=== PATIENT | male | born 1955 | race Caucasian/White ===

== ENCOUNTER 2017-03-05 11:50 | Inpatient (IN) | payer BC ==
[2017-03-05] MEDS ORDERED: Sodium Chloride 0.9% 2.5 ML Syringe FLUSH PRN (11:53)
[2017-03-05] MEDS ORDERED: Sodium Chloride 0.9% 10 ML Syringe FLUSH PRN (11:53)
--- NOTE | 2017-03-05 12:05 | EDM.PDOC ---
ED HPI GENERAL MEDICAL PROBLEM - General Chief Complaint: General Stated Complaint: OXYGEN LEVEL LOW Time Seen by Provider: 03/05/17 11:52 Source of Information: Reports: Family History Limitations: Reports: No Limitations - History of Present Illness INITIAL COMMENTS - FREE TEXT/NARRATIVE: History of present illness: []She has a history of liver cancer and was treated in [place] on January 29 with chemotherapy embolization and while in the hospital received IV Dilaudid which caused respiratory depression. He was discharged on January 31 and had increased amount of confusion and hypoxia suspected from encephalopathy and Dilaudid. She was started on lactulose and was discharged home. She does have a history of COPD and is supposed to be on oxygen that was prescribed prior to discharge from [place], however he did not receive this. He was seen in clinic today by Dr. Echevarria to transfer him to the ED due to increased confusion and ascites. He's requesting patient be admitted receive paracentesis and worked up for worsening hepatic encephalitis. Patient had some nausea last night but has not had any vomiting or diarrhea. He has eaten a small amount since he came home. On arrival here his O2 sat was in the 70s. Review of systems: As per history of present illness and below otherwise all systems reviewed and negative. Past medical history: As per history of present illness and as reviewed below otherwise noncontributory. Surgical history: As per history of present illness and as reviewed below otherwise noncontributory. Social history: No reported history of drug or alcohol abuse. Family history: As per history of present illness and as reviewed below otherwise noncontributory. Physical exam: General: Well developed, well nourished in NAD, pale HEENT: Atraumatic, normocephalic, pupils reactive, negative for conjunctival pallor or scleral icterus, mucous membranes moist, throat clear, neck supple, nontender, trachea midline. Lungs: Bilateral rhonchi equal bilaterally, no respiratory distress or accessory muscle use, chest nontender. Heart: S1S2, regular, negative for clicks, rubs, or JVD. Abdomen: Soft, mildly, nontender. No rebound or guarding . Negative for costovertebral tenderness. Pelvis: Stable nontender. Genitourinary: Deferred. Rectal: Deferred. Extremities: Atraumatic, negative for cords or calf pain. Neurovascular unremarkable. Neuro: Awake, alert, oriented. Cranial nerves II through XII unremarkable. Cerebellum unremarkable. Motor and sensory unremarkable throughout. Exam nonfocal. Diagnostics: []Labs ordered showing anemia and thrombocytopenia and a predominance of neutrophils however a normal white count Chest x-ray shows no acute changes chronic interstitial lung disease similar on previous x-ray Therapeutics: []Patient was placed on oxygen and given a DuoNeb while in the ED Impression: [], Hypoxia, Liver cancer, thrombocytopenia, ascites Plan: []Admit for O2 and further treatment and workup Definitive disposition and diagnosis as appropriate pending reevaluation and review of above. abdomen Pain Score (Numeric/FACES): 5 - Related Data Allergies Allergy/AdvReac Type Severity Reaction Status Date / Time No Known Allergies Allergy Verified 03/05/17 12:13 Home Meds: Home Meds Aspirin 81 mg PO DAILY 06/21/15 [History] Spironolactone 100 mg PO DAILY 06/21/15 [History] Acetaminophen/Diphenhydramine [Acetaminophen-Diphenhyd 500-25] 1 each PO BEDTIME PRN 03/05/17 [History] Acetaminophen/HYDROcodone [Cornell 325-5 MG] 2 tab PO Q6H PRN 03/05/17 [History] Albuterol Sulfate [Proair Hfa] 1 puff IH Q6H PRN 03/05/17 [History] Albuterol/Ipratropium [DuoNeb 3.0-0.5 MG/3 ML] 3 ml NEB Q6HRRT 03/05/17 [History ] FLUoxetine HCl [Fluoxetine HCl] 40 mg PO DAILY 03/05/17 [History] Ondansetron [Zofran ODT] 4 mg PO Q8H PRN 03/05/17 [History] Past Medical History HEENT History: Reports: Impaired Vision Cardiovascular History: Reports: Hypertension Respiratory History: Reports: SOB Gastrointestinal History: Reports: Jaundice Neurological History: Reports: CVA Endocrine/Metabolic History: Reports: Diabetes, Type II Hematologic History: Reports: Blood Transfusion(s) Oncologic (Cancer) History: Reports: Liver - Infectious Disease History Infectious Disease History: Reports: Hepatitis C - Past Surgical History GI Surgical History: Reports: Appendectomy, Other (See Below) Social & Family History - Family History Family Medical History: Noncontributory HEENT: Reports: Impaired Vision Cardiac: Reports: Hypertension Respiratory: Reports: Other (See Below) Other Respiratory Family Hisory: lung CA OBGYN: Reports: Oncologic: Reports: Lung - Tobacco Use Smoking Status *Q: Former Smoker Years of Tobacco use: 40 Packs/Tins Daily: 0.5 Second Hand Smoke Exposure: Yes - Caffeine Use Caffeine Use: Reports: Coffee - Alcohol Use Days Per Week of Alcohol Use: 0 Number of Drinks Per Day: 1 Total Drinks Per Week: 0 - Recreational Drug Use Recreational Drug Use: No Drug Use in Last 12 Months: No ED ROS GENERAL - Review of Systems Review Of Systems: See Below (See history of present illness) ED EXAM, GENERAL - Physical Exam Exam: See Below (See history of present illness see history of present illness) Course - Vital Signs Last Recorded V/S: Last Vital Signs Temp 37.1 C 03/05/17 12:16 Pulse 93 03/05/17 12:50 Resp 16 03/05/17 12:50 BP 156/78 H 03/05/17 12:50 Pulse Ox 91 L 03/05/17 13:06 - Orders/Labs/Meds Orders: Active Orders 24 hr Category Date Time Status Patient Status [ADT] Routine ADT 03/05/17 14:13 Active Antiembolic Devices [RC] PER UNIT ROUTINE Care 03/05/17 14:18 Active Blood Glucose Check, Bedside [RC] TIDMEALS Care 03/05/17 14:13 Active EKG Documentation Completion [RC] STAT Care 03/05/17 13:07 Active Height and Weight [RC] DAILY Care 03/05/17 14:13 Active Intake and Output [RC] QSHIFT Care 03/05/17 14:15 Active Notify Provider Vital Signs [RC] ASDIRECTED Care 03/05/17 14:15 Active Oxygen Therapy [RC] PRN Care 03/05/17 14:13 Active Pulse Oximetry [RC] PRN Care 03/05/17 14:15 Active RT Aerosol Therapy [RC] ASDIRECTED Care 03/05/17 13:06 Active RT Aerosol Therapy [RC] ASDIRECTED Care 03/05/17 14:18 Active Up With Assistance [RC] ASDIRECTED Care 03/05/17 14:13 Active VTE/DVT Education [RC] PER UNIT ROUTINE Care 03/05/17 14:13 Active Vital Signs [RC] Q4H Care 03/05/17 14:13 Active PT Evaluation and Treatment [CONS] Routine Cons 03/05/17 14:13 Active [place] Diet [DIET] Diet 03/05/17 Breakfast Active Fluid Restriction [DIET] Diet 03/05/17 Dinner Active Echo Comp wo Cont [US] Stat Exams 03/05/17 14:13 Ordered CBC WITH AUTO DIFF [HEME] AM Lab 03/06/17 05:11 Ordered CBC WITH AUTO DIFF [HEME] AM Lab 03/07/17 05:11 Ordered CBC WITH AUTO DIFF [HEME] AM Lab 03/08/17 05:11 Ordered CBC WITH AUTO DIFF [HEME] AM Lab 03/09/17 05:11 Ordered COMPREHENSIVE METABOLIC PN,CMP [CHEM] AM Lab 03/06/17 05:11 Ordered COMPREHENSIVE METABOLIC PN,CMP [CHEM] AM Lab 03/07/17 05:11 Ordered COMPREHENSIVE METABOLIC PN,CMP [CHEM] AM Lab 03/08/17 05:11 Ordered COMPREHENSIVE METABOLIC PN,CMP [CHEM] AM Lab 03/09/17 05:11 Ordered INR,PT,PROTHROMBIN TIME [COAG] AM Lab 03/06/17 05:11 Ordered INR,PT,PROTHROMBIN TIME [COAG] AM Lab 03/07/17 05:11 Ordered INR,PT,PROTHROMBIN TIME [COAG] AM Lab 03/08/17 05:11 Ordered INR,PT,PROTHROMBIN TIME [COAG] AM Lab 03/09/17 05:11 Ordered PLATELETS APH [BBK] Stat Lab 03/05/17 12:32 Results TYPE AND SCREEN [BBK] Stat Lab 03/05/17 12:32 Results Albuterol/Ipratropium [DuoNeb 3.0-0.5 MG/3 ML] Med 03/05/17 18:00 Active 3 ml NEB Q4HRRT Aspirin Med 03/05/17 14:30 Active 81 mg PO DAILY FLUoxetine HCl [Fluoxetine HCl] Med 03/06/17 09:00 Active 40 mg PO DAILY Nicotine [Habitrol] Med 03/05/17 14:15 Active 21 mg TRDERM DAILY Ondansetron [Zofran ODT] Med 03/05/17 14:13 Active 4 mg PO Q4H PRN Pantoprazole [ProTONIX IV] Med 03/05/17 21:00 Active 40 mg IV Q12HR Sodium Chloride 0.9% [Saline Flush] Med 03/05/17 11:53 Active 10 ml FLUSH ASDIRECTED PRN Sodium Chloride 0.9% [Saline Flush] Med 03/05/17 11:53 Active 2.5 ml FLUSH ASDIRECTED PRN Spironolactone [Spironolactone] Med 03/06/17 09:00 Active 100 mg PO DAILY methylPREDNISolone Sod Succ [Solu-MEDROL] Med 03/05/17 14:15 Active 125 mg IVPUSH Q12H oxyCODONE Med 03/05/17 14:13 Active 5 mg PO Q4H PRN Saline Lock Insert [OM.PC] Stat Ot 03/05/17 11:52 Ordered Sequential Compression Device [OM.PC] Per Unit Routine Ot 03/05/17 14:15 Ordered Transfuse Platelets [COMM] Stat Ot 03/05/17 14:13 Ordered Medication Orders Albuterol/Ipratropium (Duoneb 3.0-0.5 Mg/3 Ml) 3 ml NEB Q4HRRT [facility] Aspirin (Aspirin) 81 mg PO DAILY [facility] Methylprednisolone Sodium Succinate (Solu-Medrol) 125 mg IVPUSH Q12H [facility] Nicotine (Habitrol) 21 mg TRDERM DAILY [facility] Non-Formulary Medication (Fluoxetine Hcl [Fluoxetine Hcl]) 40 mg PO DAILY [facility] Non-Formulary Medication (Spironolactone [Spironolactone]) 100 mg PO DAILY [facility] Ondansetron HCl (Zofran Odt) 4 mg PO Q4H PRN PRN Reason: nausea, able to take PO Oxycodone HCl (Oxycodone) 5 mg PO Q4H PRN PRN Reason: Pain (moderate 4-6) Pantoprazole Sodium (Protonix Iv) 40 mg IV Q12HR [facility] Sodium Chloride (Saline Flush) 10 ml FLUSH ASDIRECTED PRN PRN Reason: Keep Vein Open Last Admin: 03/05/17 14:06 Dose: 10 ml Sodium Chloride (Saline Flush) 2.5 ml FLUSH ASDIRECTED PRN PRN Reason: Keep Vein Open Last Admin: 03/05/17 14:06 Dose: 2.5 ml Labs: Laboratory Tests 03/05/17 03/05/17 03/05/17 Range/Units 12:32 12:32 12:32 WBC 6.60 (4.0-11.0) K/uL RBC 3.30 L (4.50-5.90) M/uL Hgb 10.5 L (13.0-17.0) g/dL Hct 32.0 L (38.0-50.0) % MCV 97.0 (80.0-98.0) fL MCH 31.8 (27.0-32.0) pg MCHC 32.8 (31.0-37.0) g/dL RDW Std Deviation 47.0 (28.0-62.0) fl RDW Coeff of Gretchen 13 (11.0-15.0) % Plt Count 44 L (150-400) K/uL MPV 10.50 (7.40-12.00) fL Neut % (Auto) 93.0 H (48.0-80.0) % Lymph % (Auto) 2.9 L (16.0-40.0) % [place] % (Auto) 3.9 (0.0-15.0) % Eos % (Auto) 0.2 (0.0-7.0) % Baso % (Auto) 0.0 (0.0-1.5) % Neut # (Auto) 6.1 H (1.4-5.7) K/uL Lymph # (Auto) 0.2 L (0.6-2.4) K/uL [place] # (Auto) 0.3 (0.0-0.8) K/uL Eos # (Auto) 0.0 (0.0-0.7) K/uL Baso # (Auto) 0.0 (0.0-0.1) K/uL Nucleated RBC % 0.0 /100WBC Nucleated RBCs # 0 K/uL INR 1.34 H (0.86-1.11) APTT 29.2 (18.6-31.3) SEC Sodium 136 (136-146) mmol/L Potassium 4.6 (3.5-5.1) mmol/L Chloride 109 (98-110) mmol/L Carbon Dioxide 17 L (21-31) mmol/L BUN 43 H (6.0-23.0) mg/dL Creatinine 1.6 H (0.6-1.5) mg/dL Est Cr Clr Drug Dosing 50.69 mL/min Estimated GFR (MDRD) 44.3 ml/min Glucose 114 H (60-110) mg/dL Calcium 8.3 L (8.8-10.8) mg/dL Total Bilirubin 2.0 H (0.1-1.5) mg/dL AST 99 H (5-40) IU/L ALT 94 H (8-54) IU/L Alkaline Phosphatase 102 (40-150) Ammonia (14-68) UG/DL Total Protein 6.4 (6.0-8.0) g/dL Albumin 2.7 L (3.4-4.8) g/dL Globulin 3.7 H (2.0-3.5) g/dL Albumin/Globulin Ratio 0.7 L (1.3-2.8) Blood Type Antibody Screen 03/05/17 03/05/17 Range/Units 12:32 12:32 WBC (4.0-11.0) K/uL RBC (4.50-5.90) M/uL Hgb (13.0-17.0) g/dL Hct (38.0-50.0) % MCV (80.0-98.0) fL MCH (27.0-32.0) pg MCHC (31.0-37.0) g/dL RDW Std Deviation (28.0-62.0) fl RDW Coeff of Gretchen (11.0-15.0) % Plt Count (150-400) K/uL MPV (7.40-12.00) fL Neut % (Auto) (48.0-80.0) % Lymph % (Auto) (16.0-40.0) % [place] % (Auto) (0.0-15.0) % Eos % (Auto) (0.0-7.0) % Baso % (Auto) (0.0-1.5) % Neut # (Auto) (1.4-5.7) K/uL Lymph # (Auto) (0.6-2.4) K/uL [place] # (Auto) (0.0-0.8) K/uL Eos # (Auto) (0.0-0.7) K/uL Baso # (Auto) (0.0-0.1) K/uL Nucleated RBC % /100WBC Nucleated RBCs # K/uL INR (0.86-1.11) APTT (18.6-31.3) SEC Sodium (136-146) mmol/L Potassium (3.5-5.1) mmol/L Chloride (98-110) mmol/L Carbon Dioxide (21-31) mmol/L BUN (6.0-23.0) mg/dL Creatinine (0.6-1.5) mg/dL Est Cr Clr Drug Dosing mL/min Estimated GFR (MDRD) ml/min Glucose (60-110) mg/dL Calcium (8.8-10.8) mg/dL Total Bilirubin (0.1-1.5) mg/dL AST (5-40) IU/L ALT (8-54) IU/L Alkaline Phosphatase (40-150) Ammonia 45 (14-68) UG/DL Total Protein (6.0-8.0) g/dL Albumin (3.4-4.8) g/dL Globulin (2.0-3.5) g/dL Albumin/Globulin Ratio (1.3-2.8) Blood Type B POSITIVE Antibody Screen NEGATIVE Meds: Medications Generic Name Dose Route Start Last Admin Trade Name Freq PRN Reason Stop Dose Admin Albuterol/Ipratropium 3 ml 03/05/17 18:00 Duoneb 3.0-0.5 Mg/3 Ml NEB Q4HRRT [facility] Aspirin 81 mg 03/05/17 14:30 Aspirin PO DAILY [facility] Methylprednisolone Sodium Succinate 125 mg 03/05/17 14:15 Solu-Medrol IVPUSH Q12H [facility] Nicotine 21 mg 03/05/17 14:15 Habitrol TRDERM DAILY [facility] Non-Formulary Medication 40 mg 03/06/17 09:00 Fluoxetine Hcl [Fluoxetine Hcl] PO DAILY [facility] Non-Formulary Medication 100 mg 03/06/17 09:00 Spironolactone [Spironolactone] PO DAILY [facility] Ondansetron HCl 4 mg 03/05/17 14:13 Zofran Odt PO Q4H PRN nausea, able to take PO Oxycodone HCl 5 mg 03/05/17 14:13 Oxycodone PO Q4H PRN Pain (moderate 4-6) Pantoprazole Sodium 40 mg 03/05/17 21:00 Protonix Iv IV Q12HR [facility] Sodium Chloride 10 ml 03/05/17 11:53 03/05/17 14:06 Saline Flush FLUSH 10 ml ASDIRECTED PRN Administration Keep Vein Open Sodium Chloride 2.5 ml 03/05/17 11:53 03/05/17 14:06 Saline Flush FLUSH 2.5 ml ASDIRECTED PRN Administration Keep Vein Open Discontinued Medications Generic Name Dose Route Start Last Admin Trade Name Deanne PRN Reason Stop Dose Admin Albuterol/Ipratropium 3 ml 03/05/17 13:06 03/05/17 13:12 Duoneb 3.0-0.5 Mg/3 Ml NEB 03/05/17 13:07 3 ml ONETIME ONE Administration Furosemide 40 mg 03/05/17 14:13 Lasix IVPUSH 03/05/17 14:14 NOW ONE Departure - Departure Time of Disposition: 14:37 Disposition: Home, Self-Care 01 Condition: Good Clinical Impression: Hypoxia, Liver cancer, Ascites - Discharge Information Referrals: Bhargav Tariq MD [Primary Care Provider] - Forms: ED Department Discharge - My Orders Last 24 Hours: My Active Orders 03/05/17 11:52 Saline Lock Insert [OM.PC] Stat 03/05/17 11:53 Sodium Chloride 0.9% [Saline Flush] 10 ml FLUSH ASDIRECTED PRN Sodium Chloride 0.9% [Saline Flush] 2.5 ml FLUSH ASDIRECTED PRN 03/05/17 12:32 TYPE AND SCREEN [BBK] Stat 03/05/17 13:06 RT Aerosol Therapy [RC] ASDIRECTED 03/05/17 13:07 EKG Documentation Completion [RC] STAT - Assessment/Plan Last 24 Hours: My Active Orders 03/05/17 11:52 Saline Lock Insert [OM.PC] Stat 03/05/17 11:53 Sodium Chloride 0.9% [Saline Flush] 10 ml FLUSH ASDIRECTED PRN Sodium Chloride 0.9% [Saline Flush] 2.5 ml FLUSH ASDIRECTED PRN 03/05/17 12:32 TYPE AND SCREEN [BBK] Stat 03/05/17 13:06 RT Aerosol Therapy [RC] ASDIRECTED 03/05/17 13:07 EKG Documentation Completion [RC] STAT
[2017-03-05] MEDS ORDERED: Albuterol/Ipratropium 3.0-0.5 MG/3 ML Neb Soln NEB ONE (13:06)
--- NOTE | 2017-03-05 13:31 | CR ---
Portable chest Cardiac size is within normal limits unchanged from prior examination of May 03, 2016. There is a shallow inspiration. There is abnormal chronic interstitial density throughout the lungs. This bates s not have an appearance typical for pulmonary edema and pulmonary vessels are within normal limits. Impression: Likely chronic interstitial lung disease with low lung volumes
[2017-03-05] MEDS ORDERED: Ondansetron 4 MG Tab.DIS PO PRN (14:13)
[2017-03-05] MEDS ORDERED: Furosemide 40 MG/4 ML VIAL IVPUSH ONE (14:13)
--- NOTE | 2017-03-05 15:16 | PCM.HP ---
H&P History of Present Illness - General Date of Service: 03/05/17 Admit Problem/Dx: Admission Diagnosis/Problem Admission Diagnosis/Problem Shortness of breath Source of Information: Patient, Family () History Limitations: Reports: No Limitations - History of Present Illness Initial Comments - Free Text/Narative: 61-year-old male with a significant past medical history including COPD, hypertension, type 2 diabetes, hepatitis C and a current diagnosis of liver cancer that is being admitted with shortness of breath and abdominal ascites. Patient was recently hospitalized at [place] on March 01 secondary to his liver cancer in order to undergo chemotherapy embolization. He was given IV Dilaudid for pain which caused respiratory depression and required the patient to be placed on supplemental O2 via nasal cannula. He was discharged from [facility] on January 31 and at the time of discharge it was noted that he had increased confusion and hypoxia secondary to hepatic encephalopathy given his history of liver cancer and his recent medication use of Dilaudid. He was discharged home on oxygen but the of the patient states that they did not get it as they wanted to get back home to [place] and they would've had to have waited around [place] for a few days which the patient did not want to do. Patient was started on lactulose secondary to hepatic encephalopathy while admitted and was discharged home on this medication but the patient and his both state that they have not taken it since discharge. The patient was also discharged with a walker and the patient has been using this since discharge. The patient went to see his primary care physician today Dr. Tariq, an internal medicine physician, secondary to increased confusion and abdominal ascites. He sent the patient over to the emergency department secondary to shortness of breath and wanting the patient to receive a paracentesis secondary to worsening hepatic encephalopathy. The patient notes that he was diagnosed with liver cancer 3-4 years ago. He follows with an oncologist in [place]. They are unsure of any metastasis from the liver cancer. Patient also has a diagnosis of hepatitis C and is followed by an infectious disease doctor in [place]. He recently finished a 3 month course of Harvoni and was told that at the end of this treatment his hepatitis C was now inactive. Patient has had multiple paracenteses performed totaling 3. His last paracentesis was 2 weeks ago where a total of 7 L of fluid was removed. Typically there is a 1 month gap Between when he has received his paracenteses and typically between 5-6 L has been drained with these taps. Prior to being admitted and [place] at the beginning of February, the patient was not on any supplemental O2 and was only taking pro-air and doing duo nebs at home for his COPD. He has a 50 year smoking history and quit smoking 1 week ago. He is taking spironolactone daily secondary to peripheral edema. The of the patient notes that he has had multiple stents placed in his heart but has not been seen by preparator. She notes that he did suffer a stroke a couple years ago. The patient today complains of diffuse abdominal pain with pain worse on the right side. He also notes peripheral edema in his legs bilaterally. He does endorse orthopnea but denies any hemoptysis or cough. He denies any chest pain, palpitations. He was tolerating oral intake over the last few days but over the last day this is decreased. He denies any nausea or vomiting. He's been voiding appropriately. He has been afebrile. The patient endorses easy bruising but no active bleeding. He denies any dark stools. ER course: CBC showed anemia with a hemoglobin of 10.5 and thrombocytopenia with a platelet count of 44,000. INR was 1.34. Chest x-ray showed chronic interstitial changes consistent with chronic lung disease. CMP shows elevated liver enzymes likely secondary to the patient's liver cancer. His BUN and creatinine are also increased. When compared with previous admissions they are significantly increase. He may have hepatorenal syndrome. Troponin was negative. Ammonia was within normal limits. abdomen Pain Score (Numeric/FACES): 5 - Related Data Allergies/Adverse Reactions: Allergies Allergy/AdvReac Type Severity Reaction Status Date / Time No Known Allergies Allergy Verified 03/05/17 12:13 Home Medications: Home Meds Aspirin 81 mg PO DAILY 06/21/15 [History] Spironolactone 100 mg PO DAILY 06/21/15 [History] Acetaminophen/Diphenhydramine [Acetaminophen-Diphenhyd 500-25] 1 each PO BEDTIME PRN 03/05/17 [History] Acetaminophen/HYDROcodone [Hegins 325-5 MG] 2 tab PO Q6H PRN 03/05/17 [History] Albuterol Sulfate [Proair Hfa] 1 puff IH Q6H PRN 03/05/17 [History] Albuterol/Ipratropium [DuoNeb 3.0-0.5 MG/3 ML] 3 ml NEB Q6HRRT 03/05/17 [History ] FLUoxetine HCl [Fluoxetine HCl] 40 mg PO DAILY 03/05/17 [History] Ondansetron [Zofran ODT] 4 mg PO Q8H PRN 03/05/17 [History] Past Medical History HEENT History: Reports: Impaired Vision Cardiovascular History: Reports: Hypertension Respiratory History: Reports: SOB Gastrointestinal History: Reports: Jaundice Neurological History: Reports: CVA Endocrine/Metabolic History: Reports: Diabetes, Type II Hematologic History: Reports: Blood Transfusion(s) Oncologic (Cancer) History: Reports: Liver - Infectious Disease History Infectious Disease History: Reports: Hepatitis C - Past Surgical History GI Surgical History: Reports: Appendectomy, Other (See Below) Social & Family History - Family History Family Medical History: Noncontributory HEENT: Reports: Impaired Vision Cardiac: Reports: Hypertension Respiratory: Reports: Other (See Below) Other Respiratory Family Hisory: lung CA OBGYN: Reports: Oncologic: Reports: Lung - Tobacco Use Smoking Status *Q: Former Smoker Years of Tobacco use: 40 Packs/Tins Daily: 0.5 Second Hand Smoke Exposure: Yes - Caffeine Use Caffeine Use: Reports: Coffee - Alcohol Use Days Per Week of Alcohol Use: 0 Number of Drinks Per Day: 1 Total Drinks Per Week: 0 - Recreational Drug Use Recreational Drug Use: No Drug Use in Last 12 Months: No H&P Review of Systems - Review of Systems: Review Of Systems: See Below General: Reports: Weakness, Fatigue, Decreased Appetite HEENT: Reports: Headaches Pulmonary: Reports: Shortness of Breath. Denies: Hemoptysis Cardiovascular: Reports: Dyspnea on Exertion, Orthopnea, Edema Gastrointestinal: Reports: Abdominal Pain (Diffuse with pain increased on the right side), Decreased Appetite. Denies: Nausea, Vomiting Genitourinary: Reports: No Symptoms Musculoskeletal: Reports: No Symptoms Skin: Reports: Bruising Psychiatric: Reports: No Symptoms Neurological: Reports: Weakness Hematologic/Lymphatic: Reports: Easy Bruising Immunologic: Reports: No Symptoms Exam - Exam Exam: See Below - Vital Signs Vital Signs: Last Vital Signs Temp 98.7 F 03/05/17 12:16 Pulse 95 03/05/17 14:00 Resp 24 H 03/05/17 14:00 BP 140/73 03/05/17 14:00 Pulse Ox 94 L 03/05/17 14:00 Weight: 195 lb 1.745 oz - Exam Quality Assessment: Supplemental Oxygen (Nasal cannula), DVT Prophylaxis ( Sequential compression devices) General: Alert, Oriented, Cooperative, Moderate Distress (Increased work of breathing despite being on supplemental O2 via nasal cannula.) HEENT: EACs Clear, Hearing Intact, Mucosa Moist & [place], Normal Nasal Septum, Posterior Pharynx Clear, Scleral Icterus (Mild), PERRLA Neck: Supple, Trachea Midline, 2 Lungs: Other (Coarse breath sounds noted diffusely in all lung carmona bilaterally. Increased work of breathing despite supplemental O2 via nasal cannula. Patient was also tachypneic with a respiratory rate of 24.) Cardiovascular: Regular Rate, Regular Rhythm GI/Abdominal Exam: No Abnormal Bruit, No Mass, Distended, Guarding (Right upper and lower quadrant), Tender (Right upper and lower quadrant), Abnormal Bowel Sounds (Hyperactive bowel sounds diffusely), Hepatomegaly Extremities: Non-Tender, Normal Capillary Refill, Pedal Edema (+2 pitting edema lower extremities bilaterally), Other (No calf tenderness with palpation bilaterally.) Peripheral Pulses: 2+: Radial (L), Radial (R), Posterior Tibial (L), Posterior Tibial (R) Skin: Warm, Dry, Intact Neuro Extensive - Mental Status: Alert, Oriented x3, Normal Mood/Affect, Normal Cognition Psychiatric: Alert - Patient Data Result Diagrams: 03/05/17 12:32 03/05/17 12:32 *Q Meaningful Use (ADM) - VTE *Q VTE Criteria *Q: - Stroke *Q Stroke Criteria *Q: - AMI *Q AMI Criteria *Q: - Problem List (1) COPD exacerbation SNOMED Code(s): 569791899, 954795044 ICD Code: J44.1 - CHRONIC OBSTRUCTIVE PULMONARY DISEASE W (ACUTE) EXACERBATION Status: Acute Current Visit: Yes (2) Thrombocytopenia SNOMED Code(s): 346595850 ICD Code: D69.6 - THROMBOCYTOPENIA, UNSPECIFIED Status: Acute Current Visit: Yes (3) Ascites SNOMED Code(s): 594456312 ICD Code: R18.8 - OTHER ASCITES Status: Acute Current Visit: Yes (4) Hypoxia SNOMED Code(s): 351262852, 296881189 ICD Code: R09.02 - HYPOXEMIA Status: Acute Current Visit: Yes (5) Liver cancer SNOMED Code(s): 34556055 ICD Code: C22.9 - MALIG NEOPLASM OF LIVER, NOT SPECIFIED PRIMARY OR SEC Status: Acute Current Visit: Yes (6) Abdominal pain SNOMED Code(s): 31842571 ICD Code: R10.9 - UNSPECIFIED ABDOMINAL PAIN Status: Acute Current Visit : No Problem List Initiated/Reviewed/Updated: Yes Orders Last 24hrs: Active Orders 24 hr Category Date Time Status Echo Comp wo Cont [US] Stat Exams 03/05/17 14:13 Ordered TROPONIN I [CHEM] Routine Lab 03/05/17 14:50 Received Aspirin Med 03/05/17 14:30 Active 81 mg PO DAILY FLUoxetine HCl [Fluoxetine HCl] Med 03/06/17 09:00 Active 40 mg PO DAILY Spironolactone [Spironolactone] Med 03/06/17 09:00 Active 100 mg PO DAILY Medication Orders Albuterol/Ipratropium (Duoneb 3.0-0.5 Mg/3 Ml) 3 ml NEB Q4HRRT [facility] Aspirin (Aspirin) 81 mg PO DAILY [facility] Methylprednisolone Sodium Succinate (Solu-Medrol) 125 mg IVPUSH Q12H [place] Nicotine (Habitrol) 21 mg TRDERM DAILY [facility] Non-Formulary Medication (Fluoxetine Hcl [Fluoxetine Hcl]) 40 mg PO DAILY [facility] Non-Formulary Medication (Spironolactone [Spironolactone]) 100 mg PO DAILY [facility] Ondansetron HCl (Zofran Odt) 4 mg PO Q4H PRN PRN Reason: nausea, able to take PO Oxycodone HCl (Oxycodone) 5 mg PO Q4H PRN PRN Reason: Pain (moderate 4-6) Pantoprazole Sodium (Protonix Iv) 40 mg IV Q12HR [facility] Sodium Chloride (Saline Flush) 10 ml FLUSH ASDIRECTED PRN PRN Reason: Keep Vein Open Last Admin: 03/05/17 14:06 Dose: 10 ml Sodium Chloride (Saline Flush) 2.5 ml FLUSH ASDIRECTED PRN PRN Reason: Keep Vein Open Last Admin: 03/05/17 14:06 Dose: 2.5 ml Assessment/Plan Comment:: 61-year-old male with a current diagnosis of liver cancer and a significant medical history including COPD, hypertension, type 2 diabetes and hepatitis C that is being admitted with shortness of breath and increasing abdominal distention likely secondary to ascites. #1. Abdominal ascites with distention secondary to liver cancer: -Patient has had 3 paracenteses performed in the past. These have been done here in [place]. Last paracentesis was 2 weeks ago. Current platelet count is 44,000. His platelet count is too low for the patient to have a paracentesis done here. We have ordered 2 units of platelets which the patient will receive tomorrow which will likely be followed by a paracentesis. Radiology has been contacted and they would like his platelet count to be above 50,000 before paracentesis is performed. -Patient will receive a one-time dose of Lasix 40 mg IV. We'll continue to monitor his kidney function via daily BMPs. -Patient placed on a 2 L fluid restriction. -We have restarted the patient's home medication of spironolactone. -Patient will receive oxycodone for pain relief. We have discontinued any of his home medications with Tylenol and we are avoiding any NSAIDs secondary to his poor kidney function. #2. COPD exacerbation: -Chest x-ray shows chronic interstitial changes consistent with chronic lung disease. No evidence of pneumonia. White blood cell count is normal. -Patient will be started on Solu-Medrol 125 mg IV daily. -Patient will be started on Protonix 40 mg daily secondary to daily steroid. -Duo nebs every 4 hours scheduled. -Supplemental O2 via nasal cannula as needed. #3. Thrombocytopenia likely secondary to liver cancer: -Patient will receive 2 units of platelets tomorrow. We will follow platelet count with daily CBCs. -We will follow INR daily. #4. Abdominal ascites, peripheral edema, orthopnea: -Echocardiogram is ordered and pending. #5. Type 2 diabetes: -Patient is not taking any diabetic medications at home. Will check his blood sugars 3 times a day and at bedtime. NovoLog sliding scale has been started as needed. We discussed possible transfer the patient to [place] for platelet transfusion and paracentesis. Patient does not want transfer at this time. Physical therapy has been ordered for the patient. Discharge: 3-5 days pending improvement.
[2017-03-05] MEDS ORDERED: Insulin Aspart 100 Units/ML 3 ML Pen SUBCUT PRN (15:31)
[2017-03-05] MEDS: Nicotine 21 MG/24 Hr Patch TRDERM SCH (15:33)
[2017-03-05] MEDS: methylPREDNISolone Sodium Succinate 125 MG/2 ML SDV IVPUSH SCH (15:33)
[2017-03-05] MEDS: Aspirin 81 MG Tab.Chew PO SCH (16:17)
[2017-03-05] MEDS: oxyCODONE 5 MG Tab PO PRN ×2 (16:29→21:16)
[2017-03-05] MEDS: Albuterol/Ipratropium 3.0-0.5 MG/3 ML Neb Soln NEB SCH ×2 (17:52→21:53)
[2017-03-05] MEDS: Insulin Aspart 100 Units/ML 3 ML Pen SUBCUT SCH (18:18)
[2017-03-05] MEDS ORDERED: Pantoprazole 40 MG Vial IV SCH (21:00)
[2017-03-06] MEDS: methylPREDNISolone Sodium Succinate 125 MG/2 ML SDV IVPUSH SCH ×2 (02:03→13:17)
[2017-03-06] MEDS: Albuterol/Ipratropium 3.0-0.5 MG/3 ML Neb Soln NEB SCH ×6 (02:03→22:52)
[2017-03-06] MEDS: oxyCODONE 5 MG Tab PO PRN ×2 (04:48→13:15)
[2017-03-06] MEDS: Insulin Aspart 100 Units/ML 3 ML Pen SUBCUT SCH ×3 (07:24→18:39)
[2017-03-06] MEDS: FLUoxetine 20 MG Cap PO SCH (08:25)
[2017-03-06] MEDS: Spironolactone 25 MG Tab PO SCH (08:26)
[2017-03-06] MEDS: Nicotine 21 MG/24 Hr Patch TRDERM SCH (08:27)
[2017-03-06] MEDS: Pantoprazole 40 MG in Sodium Chloride 0.9% 10 ML IV SCH ×2 (08:29→20:49)
[2017-03-06] MEDS: Aspirin 81 MG Tab.Chew PO SCH (08:32)
[2017-03-06] MEDS: Azithromycin 500 MG in Sodium Chloride 0.9% 250 ML IV SCH (09:05)
--- NOTE | 2017-03-06 16:00 | US ---
Ultrasound-guided paracentesis At patient's bedside in the ICU after informed consent was obtained under lidocaine anesthesia a cat heter was inserted into the peritoneal space with removal of 3500 cc of clear yellow fluid. At the c onclusion of the procedure there is very little remaining fluid. Impression: Successful ultrasound-guided paracentesis
[2017-03-06] MEDS ORDERED: LORazepam 2 MG/ML MDV IVPUSH ONE (19:14)
--- NOTE | 2017-03-06 19:23 | PCM.PN ---
<Claudio Ambrosio Z - Last Filed: 03/06/17 19:16> - General Info Admission Dx/Problem (Free Text): Patient was going into severe respiratory failure secondary to end-stage COPD along with ascites that was pushing up onto the diaphragm and making it difficult for the patient to breathe. The patient was switched from 12 L of nasal cannula over to BiPAP and we were also considering that if the patient further de-compromise that he would need to be intubated and to be transported help. The patient is said to have a paracentesis later today by radiology and we will reassess the patient's respiratory status. The patient has received 2 units of platelets and platelet count currently is about 1999 - Review of Systems General: Reports: Weakness, Fatigue, Appetite Pulmonary: Reports: Shortness of Breath, Wheezing Cardiovascular: Reports: Lightheadedness Gastrointestinal: Reports: Abdominal Pain, Other (Ascites) - Patient Data Vitals - Most Recent: Last Vital Signs Temp 36.8 C 03/06/17 16:00 Pulse 94 03/05/17 14:45 Resp 22 H 03/06/17 19:00 BP 155/77 H 03/06/17 19:00 Pulse Ox 99 03/06/17 19:00 Weight - Most Recent: 95.1 kg I&O - Last 24 Hours: Intake & Output 03/06/17 03/06/17 03/06/17 06:59 14:59 22:59 Intake Total 450 494 500 Output Total 710 300 Balance -260 494 200 Lab Results Last 24 Hours: Laboratory Results - last 24 hr 03/05/17 03/06/17 03/06/17 Range/Units 19:43 04:28 04:28 WBC 4.38 (4.0-11.0) K/uL RBC 2.86 L (4.50-5.90) M/uL Hgb 9.2 L (13.0-17.0) g/dL Hct 27.6 L (38.0-50.0) % MCV 96.5 (80.0-98.0) fL MCH 32.2 H (27.0-32.0) pg MCHC 33.3 (31.0-37.0) g/dL RDW Std Deviation 47.2 (28.0-62.0) fl RDW Coeff of Gretchen 14 (11.0-15.0) % Plt Count 39 L (150-400) K/uL MPV 10.50 (7.40-12.00) fL Neut % (Auto) 97.0 H (48.0-80.0) % Lymph % (Auto) 0.7 L (16.0-40.0) % [place] % (Auto) 2.3 (0.0-15.0) % Eos % (Auto) 0.0 (0.0-7.0) % Baso % (Auto) 0.0 (0.0-1.5) % Neut # (Auto) 4.3 (1.4-5.7) K/uL Lymph # (Auto) 0.0 L (0.6-2.4) K/uL [place] # (Auto) 0.1 (0.0-0.8) K/uL Eos # (Auto) 0.0 (0.0-0.7) K/uL Baso # (Auto) 0.0 (0.0-0.1) K/uL Nucleated RBC % 0.9 /100WBC Nucleated RBCs # 0 K/uL INR 1.36 H (0.86-1.11) ABG pH 7.374 (7.35-7.45) ABG pCO2 29 L (35-45) mmHG ABG pO2 37 L* (75-100) mmHG ABG HCO3 17 L (22-26) mEq/L ABG Total CO2 16.3 ABG Base Excess -7.4 L (-2.0-2.0) Sodium (136-146) mmol/L Potassium (3.5-5.1) mmol/L Chloride (98-110) mmol/L Carbon Dioxide (21-31) mmol/L BUN (6.0-23.0) mg/dL Creatinine (0.6-1.5) mg/dL Est Cr Clr Drug Dosing mL/min Estimated GFR (MDRD) ml/min Glucose (60-110) mg/dL POC Glucose (60-110) mg/dL Calcium (8.8-10.8) mg/dL Total Bilirubin (0.1-1.5) mg/dL AST (5-40) IU/L ALT (8-54) IU/L Alkaline Phosphatase (40-150) Total Protein (6.0-8.0) g/dL Albumin (3.4-4.8) g/dL Globulin (2.0-3.5) g/dL Albumin/Globulin Ratio (1.3-2.8) Fluid Type Fluid Color Fluid Appearance Fluid WBC K/uL Fluid RBC M/uL Fluid Mononuclear Cell % Fl Polymorphonucl Cell % 03/06/17 03/06/17 03/06/17 Range/Units 04:28 07:21 09:05 WBC (4.0-11.0) K/uL RBC (4.50-5.90) M/uL Hgb (13.0-17.0) g/dL Hct (38.0-50.0) % MCV (80.0-98.0) fL MCH (27.0-32.0) pg MCHC (31.0-37.0) g/dL RDW Std Deviation (28.0-62.0) fl RDW Coeff of Gretchen (11.0-15.0) % Plt Count (150-400) K/uL MPV (7.40-12.00) fL Neut % (Auto) (48.0-80.0) % Lymph % (Auto) (16.0-40.0) % [place] % (Auto) (0.0-15.0) % Eos % (Auto) (0.0-7.0) % Baso % (Auto) (0.0-1.5) % Neut # (Auto) (1.4-5.7) K/uL Lymph # (Auto) (0.6-2.4) K/uL [place] # (Auto) (0.0-0.8) K/uL Eos # (Auto) (0.0-0.7) K/uL Baso # (Auto) (0.0-0.1) K/uL Nucleated RBC % /100WBC Nucleated RBCs # K/uL INR (0.86-1.11) ABG pH 7.290 L (7.35-7.45) ABG pCO2 32 L (35-45) mmHG ABG pO2 50 L (75-100) mmHG ABG HCO3 15 L (22-26) mEq/L ABG Total CO2 14.8 ABG Base Excess -10.2 L (-2.0-2.0) Sodium 136 (136-146) mmol/L Potassium 4.6 (3.5-5.1) mmol/L Chloride 111 H (98-110) mmol/L Carbon Dioxide 15 L (21-31) mmol/L BUN 49 H (6.0-23.0) mg/dL Creatinine 1.8 H (0.6-1.5) mg/dL Est Cr Clr Drug Dosing 45.17 mL/min Estimated GFR (MDRD) 38.7 ml/min Glucose 200 H (60-110) mg/dL POC Glucose 178 H (60-110) mg/dL Calcium 8.1 L (8.8-10.8) mg/dL Total Bilirubin 1.6 H (0.1-1.5) mg/dL AST 61 H (5-40) IU/L ALT 74 H (8-54) IU/L Alkaline Phosphatase 96 (40-150) Total Protein 5.8 L (6.0-8.0) g/dL Albumin 2.5 L (3.4-4.8) g/dL Globulin 3.3 (2.0-3.5) g/dL Albumin/Globulin Ratio 0.8 L (1.3-2.8) Fluid Type Fluid Color Fluid Appearance Fluid WBC K/uL Fluid RBC M/uL Fluid Mononuclear Cell % Fl Polymorphonucl Cell % 03/06/17 03/06/17 03/06/17 Range/Units 10:06 11:43 12:11 WBC 5.31 (4.0-11.0) K/uL RBC 2.62 L (4.50-5.90) M/uL Hgb 8.4 L (13.0-17.0) g/dL Hct 25.9 L (38.0-50.0) % MCV 98.9 H (80.0-98.0) fL MCH 32.1 H (27.0-32.0) pg MCHC 32.4 (31.0-37.0) g/dL RDW Std Deviation 44.0 (28.0-62.0) fl RDW Coeff of Gretchen 13 (11.0-15.0) % Plt Count 62 L (150-400) K/uL MPV 10.30 (7.40-12.00) fL Neut % (Auto) 95.7 H (48.0-80.0) % Lymph % (Auto) 1.5 L (16.0-40.0) % [place] % (Auto) 2.8 (0.0-15.0) % Eos % (Auto) 0.0 (0.0-7.0) % Baso % (Auto) 0.0 (0.0-1.5) % Neut # (Auto) 5.1 (1.4-5.7) K/uL Lymph # (Auto) 0.1 L (0.6-2.4) K/uL [place] # (Auto) 0.2 (0.0-0.8) K/uL Eos # (Auto) 0.0 (0.0-0.7) K/uL Baso # (Auto) 0.0 (0.0-0.1) K/uL Nucleated RBC % /100WBC Nucleated RBCs # K/uL INR (0.86-1.11) ABG pH 7.283 L (7.35-7.45) ABG pCO2 33 L (35-45) mmHG ABG pO2 55 L (75-100) mmHG ABG HCO3 16 L (22-26) mEq/L ABG Total CO2 15.2 ABG Base Excess -10.1 L (-2.0-2.0) Sodium (136-146) mmol/L Potassium (3.5-5.1) mmol/L Chloride (98-110) mmol/L Carbon Dioxide (21-31) mmol/L BUN (6.0-23.0) mg/dL Creatinine (0.6-1.5) mg/dL Est Cr Clr Drug Dosing mL/min Estimated GFR (MDRD) ml/min Glucose (60-110) mg/dL POC Glucose 183 H (60-110) mg/dL Calcium (8.8-10.8) mg/dL Total Bilirubin (0.1-1.5) mg/dL AST (5-40) IU/L ALT (8-54) IU/L Alkaline Phosphatase (40-150) Total Protein (6.0-8.0) g/dL Albumin (3.4-4.8) g/dL Globulin (2.0-3.5) g/dL Albumin/Globulin Ratio (1.3-2.8) Fluid Type Fluid Color Fluid Appearance Fluid WBC K/uL Fluid RBC M/uL Fluid Mononuclear Cell % Fl Polymorphonucl Cell % 03/06/17 03/06/17 03/06/17 Range/Units 12:11 15:24 16:50 WBC (4.0-11.0) K/uL RBC (4.50-5.90) M/uL Hgb (13.0-17.0) g/dL Hct (38.0-50.0) % MCV (80.0-98.0) fL MCH (27.0-32.0) pg MCHC (31.0-37.0) g/dL RDW Std Deviation (28.0-62.0) fl RDW Coeff of Gretchen (11.0-15.0) % Plt Count (150-400) K/uL MPV (7.40-12.00) fL Neut % (Auto) (48.0-80.0) % Lymph % (Auto) (16.0-40.0) % [place] % (Auto) (0.0-15.0) % Eos % (Auto) (0.0-7.0) % Baso % (Auto) (0.0-1.5) % Neut # (Auto) (1.4-5.7) K/uL Lymph # (Auto) (0.6-2.4) K/uL [place] # (Auto) (0.0-0.8) K/uL Eos # (Auto) (0.0-0.7) K/uL Baso # (Auto) (0.0-0.1) K/uL Nucleated RBC % /100WBC Nucleated RBCs # K/uL INR (0.86-1.11) ABG pH 7.323 L (7.35-7.45) ABG pCO2 37 (35-45) mmHG ABG pO2 48 L (75-100) mmHG ABG HCO3 19 L (22-26) mEq/L ABG Total CO2 18.3 ABG Base Excess -6.6 L (-2.0-2.0) Sodium 136 (136-146) mmol/L Potassium 4.6 (3.5-5.1) mmol/L Chloride 111 H (98-110) mmol/L Carbon Dioxide 17 L (21-31) mmol/L BUN 51 H (6.0-23.0) mg/dL Creatinine 1.8 H (0.6-1.5) mg/dL Est Cr Clr Drug Dosing 45.17 mL/min Estimated GFR (MDRD) 38.7 ml/min Glucose 193 H (60-110) mg/dL POC Glucose (60-110) mg/dL Calcium 8.3 L (8.8-10.8) mg/dL Total Bilirubin (0.1-1.5) mg/dL AST (5-40) IU/L ALT (8-54) IU/L Alkaline Phosphatase (40-150) Total Protein (6.0-8.0) g/dL Albumin (3.4-4.8) g/dL Globulin (2.0-3.5) g/dL Albumin/Globulin Ratio (1.3-2.8) Fluid Type PER Fluid Color YELLOW Fluid Appearance CLEAR Fluid WBC 0.02 K/uL Fluid RBC 0.00 M/uL Fluid Mononuclear Cell 62.5 % Fl Polymorphonucl Cell 37.5 % 03/06/17 Range/Units 18:29 WBC (4.0-11.0) K/uL RBC (4.50-5.90) M/uL Hgb (13.0-17.0) g/dL Hct (38.0-50.0) % MCV (80.0-98.0) fL MCH (27.0-32.0) pg MCHC (31.0-37.0) g/dL RDW Std Deviation (28.0-62.0) fl RDW Coeff of Gretchen (11.0-15.0) % Plt Count (150-400) K/uL MPV (7.40-12.00) fL Neut % (Auto) (48.0-80.0) % Lymph % (Auto) (16.0-40.0) % [place] % (Auto) (0.0-15.0) % Eos % (Auto) (0.0-7.0) % Baso % (Auto) (0.0-1.5) % Neut # (Auto) (1.4-5.7) K/uL Lymph # (Auto) (0.6-2.4) K/uL [place] # (Auto) (0.0-0.8) K/uL Eos # (Auto) (0.0-0.7) K/uL Baso # (Auto) (0.0-0.1) K/uL Nucleated RBC % /100WBC Nucleated RBCs # K/uL INR (0.86-1.11) ABG pH (7.35-7.45) ABG pCO2 (35-45) mmHG ABG pO2 (75-100) mmHG ABG HCO3 (22-26) mEq/L ABG Total CO2 ABG Base Excess (-2.0-2.0) Sodium (136-146) mmol/L Potassium (3.5-5.1) mmol/L Chloride (98-110) mmol/L Carbon Dioxide (21-31) mmol/L BUN (6.0-23.0) mg/dL Creatinine (0.6-1.5) mg/dL Est Cr Clr Drug Dosing mL/min Estimated GFR (MDRD) ml/min Glucose (60-110) mg/dL POC Glucose 157 H (60-110) mg/dL Calcium (8.8-10.8) mg/dL Total Bilirubin (0.1-1.5) mg/dL AST (5-40) IU/L ALT (8-54) IU/L Alkaline Phosphatase (40-150) Total Protein (6.0-8.0) g/dL Albumin (3.4-4.8) g/dL Globulin (2.0-3.5) g/dL Albumin/Globulin Ratio (1.3-2.8) Fluid Type Fluid Color Fluid Appearance Fluid WBC K/uL Fluid RBC M/uL Fluid Mononuclear Cell % Fl Polymorphonucl Cell % Med Orders - Current: Current Medications Albuterol/Ipratropium (Duoneb 3.0-0.5 Mg/3 Ml) 3 ml NEB Q4HRRT [facility] Last Admin: 03/06/17 18:53 Dose: 3 ml Aspirin (Aspirin) 81 mg PO DAILY [facility] Last Admin: 03/06/17 08:32 Dose: Not Given Fluoxetine HCl (Prozac) 40 mg PO DAILY [facility] Last Admin: 03/06/17 08:25 Dose: 40 mg Pantoprazole Sodium 40 mg/ (Sodium Chloride) 10 mls @ 200 mls/hr IV Q12HR [facility] Last Admin: 03/06/17 08:29 Dose: 200 mls/hr Azithromycin 500 mg/ Sodium (Chloride) 250 mls @ 250 mls/hr IV Q24H [facility] Last Admin: 03/06/17 09:05 Dose: 250 mls/hr Insulin Aspart (Novolog) 0 unit SUBCUT TIDAC NELSON PRN Reason: Protocol Last Admin: 03/06/17 18:39 Dose: 1 unit Lorazepam (Ativan) 0.25 mg IVPUSH ONETIME ONE Stop: 03/06/17 19:15 Methylprednisolone Sodium Succinate (Solu-Medrol) 125 mg IVPUSH Q12H [facility] Last Admin: 03/06/17 13:17 Dose: 125 mg Nicotine (Habitrol) 21 mg TRDERM DAILY [facility] Last Admin: 03/06/17 08:27 Dose: 21 mg Ondansetron HCl (Zofran Odt) 4 mg PO Q4H PRN PRN Reason: nausea, able to take PO Last Admin: 03/06/17 13:15 Dose: 4 mg Oxycodone HCl (Oxycodone) 5 mg PO Q4H PRN PRN Reason: Pain (moderate 4-6) Last Admin: 03/06/17 13:15 Dose: 5 mg Sodium Chloride (Saline Flush) 10 ml FLUSH ASDIRECTED PRN PRN Reason: Keep Vein Open Last Admin: 03/05/17 14:06 Dose: 10 ml Sodium Chloride (Saline Flush) 2.5 ml FLUSH ASDIRECTED PRN PRN Reason: Keep Vein Open Last Admin: 03/05/17 14:06 Dose: 2.5 ml Spironolactone (Aldactone) 100 mg PO DAILY [facility] Last Admin: 03/06/17 08:26 Dose: 100 mg Discontinued Medications Albuterol/Ipratropium (Duoneb 3.0-0.5 Mg/3 Ml) 3 ml NEB ONETIME ONE Stop: 03/05/17 13:07 Last Admin: 03/05/17 13:12 Dose: 3 ml Furosemide (Lasix) 40 mg IVPUSH NOW ONE Stop: 03/05/17 14:14 Last Admin: 03/05/17 15:33 Dose: 40 mg Insulin Aspart (Novolog) 0 unit SUBCUT TIDAC PRN; Protocol PRN Reason: Blood Glucose Pantoprazole Sodium (Protonix Iv) 40 mg IV Q12HR [facility] Last Admin: 03/05/17 21:20 Dose: 40 mg - Exam Quality Assessment: Supplemental Oxygen (BiPAP) General: Oriented, Moderate Distress, Severe Distress HEENT: Pupils Equal Neck: Supple Lungs: Decreased Breath Sounds, Crackles, Rales, Wheezing Cardiovascular: Tachycardia GI/Abdominal Exam: Other (Severe ascites, distention secondary to ascites bilateral abdomen) Skin: Warm Psy/Mental Status: Anxious, Depressed, Agitated - Problem List Review Problem List Initiated/Reviewed/Updated: Yes - My Orders Last 24 Hours: My Active Orders 03/06/17 15:24 CULTURE BODY FLUID + SMEAR [RM] Routine 03/06/17 19:14 LORazepam [Ativan] 0.25 mg IVPUSH ONETIME ONE 03/06/17 19:15 LORazepam [Ativan] 0.25 mg IVPUSH Q4H PRN - Plan Plan:: 61-year-old male with a current diagnosis of liver cancer and a significant medical history including COPD, hypertension, type 2 diabetes and hepatitis C that is being admitted with shortness of breath and increasing abdominal distention likely secondary to ascites. #1. Abdominal ascites with distention secondary to liver cancer: -Patient has received 2 units of platelets his thrombocytopenia now has slightly improved to a platelet count of 6 2000. -Patient to get a paracentesis to remove ascites fluid which will be cultured as well as assessed later today by radiology -Patient received a one-time dose of Lasix 40 mg IV. We'll continue to monitor his kidney function via daily BMPs. -Patient placed on a 2 L fluid restriction. -We have restarted the patient's home medication of spironolactone. -Patient will receive oxycodone for pain relief. We have discontinued any of his home medications with Tylenol and we are avoiding any NSAIDs secondary to his poor kidney function. #2. Hypoxemic, hypercapnic respiratory failure secondary to acute COPD exacerbation: -Patient is respiratory status has worsened as a result the patient is on BiPAP while possibly consider intubation. BiPAP settings per RT's discretion -Patient will be started on Solu-Medrol 125 mg IV daily. -Patient will be started on Protonix 40 mg daily secondary to daily steroid. -Duo nebs every 4 hours scheduled. #3. Thrombocytopenia likely secondary to liver cancer: -Patient has received 2 units of platelets. Current count 62,000 We will follow platelet count with daily CBCs. -We will follow INR daily. #4. Abdominal ascites, peripheral edema, orthopnea: -Echocardiogram is read as normal #5. Type 2 diabetes: -Patient is not taking any diabetic medications at home. Will check his blood sugars 3 times a day and at bedtime. NovoLog sliding scale has been started as needed. #6. Anxiety -Ativan 0.25 IV when necessary every 4 hour We discussed possible transfer the patient to [place] if the patient gets intubated the family has agreed that if the patient's condition does worsen and he requires intubation that we will need to transfer the patient to my not, family currently agrees with this plan. We explained to the family the likelihood of the patient is intubated that he has a high likelihood of expiring. However, family and patient would still like to be full code. Physical therapy has been ordered for the patient. Discharge: 3-5 days pending improvement. <Royce Licona - Last Filed: 03/07/17 09:25> - General Info Admission Dx/Problem (Free Text): I was present with the resident during history and examination. I discussed the case with the resident and agree with the findings and plan as documented in the residents note. See my simple progress note. - Patient Data Vitals - Most Recent: Last Vital Signs Temp 36.7 C 03/07/17 04:00 Pulse 94 03/05/17 14:45 Resp 22 H 03/07/17 06:00 BP 146/74 H 03/07/17 06:00 Pulse Ox 98 03/07/17 06:00 I&O - Last 24 Hours: Intake & Output 03/06/17 03/07/17 03/07/17 22:59 06:59 14:59 Intake Total 500 50 10 Output Total 300 650 Balance 200 -600 10 Lab Results Last 24 Hours: Laboratory Results - last 24 hr 03/06/17 03/06/17 03/06/17 Range/Units 10:06 11:43 12:11 WBC 5.31 (4.0-11.0) K/uL RBC 2.62 L (4.50-5.90) M/uL Hgb 8.4 L (13.0-17.0) g/dL Hct 25.9 L (38.0-50.0) % MCV 98.9 H (80.0-98.0) fL MCH 32.1 H (27.0-32.0) pg MCHC 32.4 (31.0-37.0) g/dL RDW Std Deviation 44.0 (28.0-62.0) fl RDW Coeff of Gretchen 13 (11.0-15.0) % Plt Count 62 L (150-400) K/uL MPV 10.30 (7.40-12.00) fL Neut % (Auto) 95.7 H (48.0-80.0) % Lymph % (Auto) 1.5 L (16.0-40.0) % [place] % (Auto) 2.8 (0.0-15.0) % Eos % (Auto) 0.0 (0.0-7.0) % Baso % (Auto) 0.0 (0.0-1.5) % Neut # (Auto) 5.1 (1.4-5.7) K/uL Lymph # (Auto) 0.1 L (0.6-2.4) K/uL [place] # (Auto) 0.2 (0.0-0.8) K/uL Eos # (Auto) 0.0 (0.0-0.7) K/uL Baso # (Auto) 0.0 (0.0-0.1) K/uL INR (0.86-1.11) ABG pH 7.283 L (7.35-7.45) ABG pCO2 33 L (35-45) mmHG ABG pO2 55 L (75-100) mmHG ABG HCO3 16 L (22-26) mEq/L ABG Total CO2 15.2 ABG Base Excess -10.1 L (-2.0-2.0) Sodium (136-146) mmol/L Potassium (3.5-5.1) mmol/L Chloride (98-110) mmol/L Carbon Dioxide (21-31) mmol/L BUN (6.0-23.0) mg/dL Creatinine (0.6-1.5) mg/dL Est Cr Clr Drug Dosing mL/min Estimated GFR (MDRD) ml/min Glucose (60-110) mg/dL POC Glucose 183 H (60-110) mg/dL Calcium (8.8-10.8) mg/dL Total Bilirubin (0.1-1.5) mg/dL AST (5-40) IU/L ALT (8-54) IU/L Alkaline Phosphatase (40-150) Total Protein (6.0-8.0) g/dL Albumin (3.4-4.8) g/dL Globulin (2.0-3.5) g/dL Albumin/Globulin Ratio (1.3-2.8) Fluid Type Fluid Color Fluid Appearance Fluid WBC K/uL Fluid RBC M/uL Fluid Mononuclear Cell % Fl Polymorphonucl Cell % 03/06/17 03/06/17 03/06/17 Range/Units 12:11 15:24 16:50 WBC (4.0-11.0) K/uL RBC (4.50-5.90) M/uL Hgb (13.0-17.0) g/dL Hct (38.0-50.0) % MCV (80.0-98.0) fL MCH (27.0-32.0) pg MCHC (31.0-37.0) g/dL RDW Std Deviation (28.0-62.0) fl RDW Coeff of Gretchen (11.0-15.0) % Plt Count (150-400) K/uL MPV (7.40-12.00) fL Neut % (Auto) (48.0-80.0) % Lymph % (Auto) (16.0-40.0) % [place] % (Auto) (0.0-15.0) % Eos % (Auto) (0.0-7.0) % Baso % (Auto) (0.0-1.5) % Neut # (Auto) (1.4-5.7) K/uL Lymph # (Auto) (0.6-2.4) K/uL [place] # (Auto) (0.0-0.8) K/uL Eos # (Auto) (0.0-0.7) K/uL Baso # (Auto) (0.0-0.1) K/uL INR (0.86-1.11) ABG pH 7.323 L (7.35-7.45) ABG pCO2 37 (35-45) mmHG ABG pO2 48 L (75-100) mmHG ABG HCO3 19 L (22-26) mEq/L ABG Total CO2 18.3 ABG Base Excess -6.6 L (-2.0-2.0) Sodium 136 (136-146) mmol/L Potassium 4.6 (3.5-5.1) mmol/L Chloride 111 H (98-110) mmol/L Carbon Dioxide 17 L (21-31) mmol/L BUN 51 H (6.0-23.0) mg/dL Creatinine 1.8 H (0.6-1.5) mg/dL Est Cr Clr Drug Dosing 45.17 mL/min Estimated GFR (MDRD) 38.7 ml/min Glucose 193 H (60-110) mg/dL POC Glucose (60-110) mg/dL Calcium 8.3 L (8.8-10.8) mg/dL Total Bilirubin (0.1-1.5) mg/dL AST (5-40) IU/L ALT (8-54) IU/L Alkaline Phosphatase (40-150) Total Protein (6.0-8.0) g/dL Albumin (3.4-4.8) g/dL Globulin (2.0-3.5) g/dL Albumin/Globulin Ratio (1.3-2.8) Fluid Type PER Fluid Color YELLOW Fluid Appearance CLEAR Fluid WBC 0.02 K/uL Fluid RBC 0.00 M/uL Fluid Mononuclear Cell 62.5 % Fl Polymorphonucl Cell 37.5 % 03/06/17 03/07/17 03/07/17 Range/Units 18:29 03:35 04:55 WBC 3.47 L (4.0-11.0) K/uL RBC 2.80 L (4.50-5.90) M/uL Hgb 9.1 L (13.0-17.0) g/dL Hct 28.0 L (38.0-50.0) % MCV 100.0 H (80.0-98.0) fL MCH 32.5 H (27.0-32.0) pg MCHC 32.5 (31.0-37.0) g/dL RDW Std Deviation 45.7 (28.0-62.0) fl RDW Coeff of Gretchen 13 (11.0-15.0) % Plt Count 53 L (150-400) K/uL MPV 11.20 (7.40-12.00) fL Neut % (Auto) 94.5 H (48.0-80.0) % Lymph % (Auto) 2.0 L (16.0-40.0) % [place] % (Auto) 3.5 (0.0-15.0) % Eos % (Auto) 0.0 (0.0-7.0) % Baso % (Auto) 0.0 (0.0-1.5) % Neut # (Auto) 3.3 (1.4-5.7) K/uL Lymph # (Auto) 0.1 L (0.6-2.4) K/uL [place] # (Auto) 0.1 (0.0-0.8) K/uL Eos # (Auto) 0.0 (0.0-0.7) K/uL Baso # (Auto) 0.0 (0.0-0.1) K/uL INR (0.86-1.11) ABG pH 7.266 L (7.35-7.45) ABG pCO2 43 (35-45) mmHG ABG pO2 106 H (75-100) mmHG ABG HCO3 20 L (22-26) mEq/L ABG Total CO2 18.9 ABG Base Excess -6.8 L (-2.0-2.0) Sodium (136-146) mmol/L Potassium (3.5-5.1) mmol/L Chloride (98-110) mmol/L Carbon Dioxide (21-31) mmol/L BUN (6.0-23.0) mg/dL Creatinine (0.6-1.5) mg/dL Est Cr Clr Drug Dosing mL/min Estimated GFR (MDRD) ml/min Glucose (60-110) mg/dL POC Glucose 157 H (60-110) mg/dL Calcium (8.8-10.8) mg/dL Total Bilirubin (0.1-1.5) mg/dL AST (5-40) IU/L ALT (8-54) IU/L Alkaline Phosphatase (40-150) Total Protein (6.0-8.0) g/dL Albumin (3.4-4.8) g/dL Globulin (2.0-3.5) g/dL Albumin/Globulin Ratio (1.3-2.8) Fluid Type Fluid Color Fluid Appearance Fluid WBC K/uL Fluid RBC M/uL Fluid Mononuclear Cell % Fl Polymorphonucl Cell % 03/07/17 03/07/17 03/07/17 Range/Units 04:55 04:55 05:05 WBC (4.0-11.0) K/uL RBC (4.50-5.90) M/uL Hgb (13.0-17.0) g/dL Hct (38.0-50.0) % MCV (80.0-98.0) fL MCH (27.0-32.0) pg MCHC (31.0-37.0) g/dL RDW Std Deviation (28.0-62.0) fl RDW Coeff of Gretchen (11.0-15.0) % Plt Count (150-400) K/uL MPV (7.40-12.00) fL Neut % (Auto) (48.0-80.0) % Lymph % (Auto) (16.0-40.0) % [place] % (Auto) (0.0-15.0) % Eos % (Auto) (0.0-7.0) % Baso % (Auto) (0.0-1.5) % Neut # (Auto) (1.4-5.7) K/uL Lymph # (Auto) (0.6-2.4) K/uL [place] # (Auto) (0.0-0.8) K/uL Eos # (Auto) (0.0-0.7) K/uL Baso # (Auto) (0.0-0.1) K/uL INR 1.46 H (0.86-1.11) ABG pH 7.256 L (7.35-7.45) ABG pCO2 45 (35-45) mmHG ABG pO2 95 (75-100) mmHG ABG HCO3 20 L (22-26) mEq/L ABG Total CO2 19.3 ABG Base Excess -6.7 L (-2.0-2.0) Sodium 138 (136-146) mmol/L Potassium 5.4 H (3.5-5.1) mmol/L Chloride 112 H (98-110) mmol/L Carbon Dioxide 20 L (21-31) mmol/L BUN 64 H (6.0-23.0) mg/dL Creatinine 1.9 H (0.6-1.5) mg/dL Est Cr Clr Drug Dosing 42.79 mL/min Estimated GFR (MDRD) 36.3 ml/min Glucose 156 H (60-110) mg/dL POC Glucose (60-110) mg/dL Calcium 8.3 L (8.8-10.8) mg/dL Total Bilirubin 1.3 (0.1-1.5) mg/dL AST 41 H (5-40) IU/L ALT 52 (8-54) IU/L Alkaline Phosphatase 97 (40-150) Total Protein 5.8 L (6.0-8.0) g/dL Albumin 2.6 L (3.4-4.8) g/dL Globulin 3.2 (2.0-3.5) g/dL Albumin/Globulin Ratio 0.8 L (1.3-2.8) Fluid Type Fluid Color Fluid Appearance Fluid WBC K/uL Fluid RBC M/uL Fluid Mononuclear Cell % Fl Polymorphonucl Cell % 03/07/17 Range/Units 06:27 WBC (4.0-11.0) K/uL RBC (4.50-5.90) M/uL Hgb (13.0-17.0) g/dL Hct (38.0-50.0) % MCV (80.0-98.0) fL MCH (27.0-32.0) pg MCHC (31.0-37.0) g/dL RDW Std Deviation (28.0-62.0) fl RDW Coeff of Gretchen (11.0-15.0) % Plt Count (150-400) K/uL MPV (7.40-12.00) fL Neut % (Auto) (48.0-80.0) % Lymph % (Auto) (16.0-40.0) % [place] % (Auto) (0.0-15.0) % Eos % (Auto) (0.0-7.0) % Baso % (Auto) (0.0-1.5) % Neut # (Auto) (1.4-5.7) K/uL Lymph # (Auto) (0.6-2.4) K/uL [place] # (Auto) (0.0-0.8) K/uL Eos # (Auto) (0.0-0.7) K/uL Baso # (Auto) (0.0-0.1) K/uL INR (0.86-1.11) ABG pH (7.35-7.45) ABG pCO2 (35-45) mmHG ABG pO2 (75-100) mmHG ABG HCO3 (22-26) mEq/L ABG Total CO2 ABG Base Excess (-2.0-2.0) Sodium (136-146) mmol/L Potassium (3.5-5.1) mmol/L Chloride (98-110) mmol/L Carbon Dioxide (21-31) mmol/L BUN (6.0-23.0) mg/dL Creatinine (0.6-1.5) mg/dL Est Cr Clr Drug Dosing mL/min Estimated GFR (MDRD) ml/min Glucose (60-110) mg/dL POC Glucose 150 H (60-110) mg/dL Calcium (8.8-10.8) mg/dL Total Bilirubin (0.1-1.5) mg/dL AST (5-40) IU/L ALT (8-54) IU/L Alkaline Phosphatase (40-150) Total Protein (6.0-8.0) g/dL Albumin (3.4-4.8) g/dL Globulin (2.0-3.5) g/dL Albumin/Globulin Ratio (1.3-2.8) Fluid Type Fluid Color Fluid Appearance Fluid WBC K/uL Fluid RBC M/uL Fluid Mononuclear Cell % Fl Polymorphonucl Cell % Micheal Results Last 24 Hours: Microbiology 03/06/17 15:24 Gram Stain - Preliminary Ascities Fluid Body Fluid Culture - Preliminary NO GROWTH AFTER 1 DAY Med Orders - Current: Current Medications Albuterol/Ipratropium (Duoneb 3.0-0.5 Mg/3 Ml) 3 ml NEB Q4HRRT [facility] Last Admin: 03/07/17 06:07 Dose: 3 ml Aspirin (Aspirin) 81 mg PO DAILY [facility] Last Admin: 03/07/17 09:01 Dose: Not Given Fluoxetine HCl (Prozac) 40 mg PO DAILY [facility] Last Admin: 03/07/17 09:01 Dose: Not Given Pantoprazole Sodium 40 mg/ (Sodium Chloride) 10 mls @ 200 mls/hr IV Q12HR [facility] Last Admin: 03/07/17 09:03 Dose: 200 mls/hr Azithromycin 500 mg/ Sodium (Chloride) 250 mls @ 250 mls/hr IV Q24H [facility] Last Admin: 03/07/17 09:05 Dose: 250 mls/hr Insulin Aspart (Novolog) 0 unit SUBCUT TIDAC NELSON PRN Reason: Protocol Last Admin: 03/07/17 08:42 Dose: Not Given Lorazepam (Ativan) 0.25 mg IVPUSH Q4H PRN PRN Reason: Anxiety Last Admin: 03/07/17 02:32 Dose: 0.25 mg Methylprednisolone Sodium Succinate (Solu-Medrol) 125 mg IVPUSH Q12H [facility] Last Admin: 03/07/17 01:54 Dose: 125 mg Nicotine (Habitrol) 21 mg TRDERM DAILY [facility] Last Admin: 03/07/17 09:06 Dose: 21 mg Ondansetron HCl (Zofran Odt) 4 mg PO Q4H PRN PRN Reason: nausea, able to take PO Last Admin: 03/06/17 13:15 Dose: 4 mg Oxycodone HCl (Oxycodone) 5 mg PO Q4H PRN PRN Reason: Pain (moderate 4-6) Last Admin: 03/06/17 13:15 Dose: 5 mg Sodium Chloride (Saline Flush) 10 ml FLUSH ASDIRECTED PRN PRN Reason: Keep Vein Open Last Admin: 03/05/17 14:06 Dose: 10 ml Sodium Chloride (Saline Flush) 2.5 ml FLUSH ASDIRECTED PRN PRN Reason: Keep Vein Open Last Admin: 03/05/17 14:06 Dose: 2.5 ml Spironolactone (Aldactone) 100 mg PO DAILY [facility] Last Admin: 03/07/17 09:01 Dose: Not Given Discontinued Medications Albuterol/Ipratropium (Duoneb 3.0-0.5 Mg/3 Ml) 3 ml NEB ONETIME ONE Stop: 03/05/17 13:07 Last Admin: 03/05/17 13:12 Dose: 3 ml Furosemide (Lasix) 40 mg IVPUSH NOW ONE Stop: 03/05/17 14:14 Last Admin: 03/05/17 15:33 Dose: 40 mg Insulin Aspart (Novolog) 0 unit SUBCUT TIDAC PRN; Protocol PRN Reason: Blood Glucose Lorazepam (Ativan) 0.25 mg IVPUSH ONETIME ONE Stop: 03/06/17 19:15 Last Admin: 03/06/17 20:43 Dose: Not Given Pantoprazole Sodium (Protonix Iv) 40 mg IV Q12HR [facility] Last Admin: 03/05/17 21:20 Dose: 40 mg - My Orders Last 24 Hours: My Active Orders 03/06/17 08:45 Azithromycin [Zithromax] 500 mg Sodium Chloride 0.9% [Normal Saline] 250 ml IV Q24H 03/06/17 16:04 Chest 1V Frontal [CR] Routine
[2017-03-06] MEDS: LORazepam 2 MG/ML MDV IVPUSH PRN (22:51)
[2017-03-07] MEDS: Albuterol/Ipratropium 3.0-0.5 MG/3 ML Neb Soln NEB SCH ×3 (01:54→09:48)
[2017-03-07] MEDS: methylPREDNISolone Sodium Succinate 125 MG/2 ML SDV IVPUSH SCH (01:54)
[2017-03-07] MEDS: LORazepam 2 MG/ML MDV IVPUSH PRN ×2 (02:32→14:15)
--- NOTE | 2017-03-07 07:19 | PCM.SN ---
- Free Text/Narrative Note: March 07, 2017: I reviewed the electronic ICU charts along with physician recommendations and have followed the patient very closely with the resident. I also had a long discussion with the family with regards to the patient's overall health. My threshold for intubating this patient is low. During the family discussion I advised the patient's and daughter that it was likely that the patient would not come off of the ventilator if intubated. This was advised secondary to the patient's multiorgan system failure. Also advised them that this portends a poor prognosis. The patient's said that they were going to have a family meeting with the rest of the family members with regards to the patient's overall medical condition. For now I will continue with the patient's BiPAP and FiO2 setting is recommended by electronic ICU physician.
[2017-03-07] MEDS: Insulin Aspart 100 Units/ML 3 ML Pen SUBCUT SCH ×2 (08:42→11:34)
[2017-03-07] MEDS: Aspirin 81 MG Tab.Chew PO SCH (09:01)
[2017-03-07] MEDS: Spironolactone 25 MG Tab PO SCH (09:01)
[2017-03-07] MEDS: FLUoxetine 20 MG Cap PO SCH (09:01)
[2017-03-07] MEDS: Pantoprazole 40 MG in Sodium Chloride 0.9% 10 ML IV SCH (09:03)
[2017-03-07] MEDS: Azithromycin 500 MG in Sodium Chloride 0.9% 250 ML IV SCH (09:05)
[2017-03-07] MEDS: Nicotine 21 MG/24 Hr Patch TRDERM SCH (09:06)
--- NOTE | 2017-03-07 10:51 | CR ---
Portable chest Compared to prior examination dated March 06, 2017 there is marked worsening of consolidation with both interstitial and alveolar components bilaterally. Impression: Markedly worsening of consolidation consistent with severe pneumonia and/or pulmonary ed roxanne. Given this patient's chronic liver disease and low serum albumin much of this may be transudati ve fluid
[2017-03-07] MEDS ORDERED: Lactulose Soln 10 GM/15 ML 15 ML UD Cup PO SCH (11:30)
--- NOTE | 2017-03-07 11:51 | CR ---
EXAM DATE: 03/05/17 PATIENT'S AGE: 61 Patient: JHONATAN ZAPATA Facility: [place], [place] Site . Site : [id number] Study: XRay Chest [id number]/15/2017 6:56:44 PM Ordering Physician: Lia Lorenzo Final Report: Indication: Status post paracentesis Technique: Chest 1 view. Comparison: March 05, 2017 Findings/impression: Stable cardiac size. Diffusely increased interstitial markings throughout the lungs are unchanged. No effusion or pneumothorax. No evidence for pneumoperitoneum. Osseous structures are intact. Dictated by Concetta Gill MD @ Mar 06 2017 7:20PM (Electronic Signature) Report Signed by Proxy. LONG
[2017-03-07] MEDS ORDERED: Morphine 2 MG/ML Syringe IVPUSH PRN (12:00)
[2017-03-07] MEDS ORDERED: Scopolamine 1.5 MG Transdermal Patch TOP ONE (12:04)
--- NOTE | 2017-03-07 12:11 | PCM.PN ---
<Claudio Ambrosio Z - Last Filed: 03/07/17 12:06> - General Info Date of Service: 03/07/17 Subjective Update: Reece has progressively deteriorated overnight. Status post paracentesis patient' s ABG had slightly improved however as the night has progressed he has become progressively more encephalopathic, and ammonia level was done that showed an ammonia of 228, patient's chest x-ray showed ARDS. Spoke with the patient's family in regards to changing CODE STATUS as well as introducing comfort measures. After the family spoke decision has been made to make the patient comfort measures DNR/DNI we will still continue with the BiPAP up until the grandkids see the patient and then we will allow the family to make the decision to remove the BiPAP. Medications all have been DC'd aside from scopolamine transdermal, morphine 2 mg when necessary 1 hour for pain control, Ativan as needed for anxiety. - Review of Systems General: Reports: Fatigue Pulmonary: Reports: Shortness of Breath, Wheezing - Patient Data Vitals - Most Recent: Last Vital Signs Temp 36.4 C 03/07/17 08:24 Pulse 94 03/05/17 14:45 Resp 26 H 03/07/17 10:00 BP 137/63 03/07/17 10:00 Pulse Ox 92 L 03/07/17 10:00 Weight - Most Recent: 94.3 kg I&O - Last 24 Hours: Intake & Output 03/06/17 03/07/17 03/07/17 22:59 06:59 14:59 Intake Total 500 50 260 Output Total 300 650 Balance 200 -600 260 Lab Results Last 24 Hours: Laboratory Results - last 24 hr 03/06/17 03/06/17 03/06/17 Range/Units 12:11 12:11 15:24 WBC 5.31 (4.0-11.0) K/uL RBC 2.62 L (4.50-5.90) M/uL Hgb 8.4 L (13.0-17.0) g/dL Hct 25.9 L (38.0-50.0) % MCV 98.9 H (80.0-98.0) fL MCH 32.1 H (27.0-32.0) pg MCHC 32.4 (31.0-37.0) g/dL RDW Std Deviation 44.0 (28.0-62.0) fl RDW Coeff of Gretchen 13 (11.0-15.0) % Plt Count 62 L (150-400) K/uL MPV 10.30 (7.40-12.00) fL Neut % (Auto) 95.7 H (48.0-80.0) % Lymph % (Auto) 1.5 L (16.0-40.0) % Gray % (Auto) 2.8 (0.0-15.0) % Eos % (Auto) 0.0 (0.0-7.0) % Baso % (Auto) 0.0 (0.0-1.5) % Neut # (Auto) 5.1 (1.4-5.7) K/uL Lymph # (Auto) 0.1 L (0.6-2.4) K/uL Gray # (Auto) 0.2 (0.0-0.8) K/uL Eos # (Auto) 0.0 (0.0-0.7) K/uL Baso # (Auto) 0.0 (0.0-0.1) K/uL INR (0.86-1.11) ABG pH (7.35-7.45) ABG pCO2 (35-45) mmHG ABG pO2 (75-100) mmHG ABG HCO3 (22-26) mEq/L ABG Total CO2 ABG Base Excess (-2.0-2.0) Sodium 136 (136-146) mmol/L Potassium 4.6 (3.5-5.1) mmol/L Chloride 111 H (98-110) mmol/L Carbon Dioxide 17 L (21-31) mmol/L BUN 51 H (6.0-23.0) mg/dL Creatinine 1.8 H (0.6-1.5) mg/dL Est Cr Clr Drug Dosing 45.17 mL/min Estimated GFR (MDRD) 38.7 ml/min Glucose 193 H (60-110) mg/dL POC Glucose (60-110) mg/dL Calcium 8.3 L (8.8-10.8) mg/dL Total Bilirubin (0.1-1.5) mg/dL AST (5-40) IU/L ALT (8-54) IU/L Alkaline Phosphatase (40-150) Ammonia (14-68) UG/DL Total Protein (6.0-8.0) g/dL Albumin (3.4-4.8) g/dL Globulin (2.0-3.5) g/dL Albumin/Globulin Ratio (1.3-2.8) Fluid Type PER Fluid Color YELLOW Fluid Appearance CLEAR Fluid WBC 0.02 K/uL Fluid RBC 0.00 M/uL Fluid Mononuclear Cell 62.5 % Fl Polymorphonucl Cell 37.5 % 03/06/17 03/06/17 03/07/17 Range/Units 16:50 18:29 03:35 WBC (4.0-11.0) K/uL RBC (4.50-5.90) M/uL Hgb (13.0-17.0) g/dL Hct (38.0-50.0) % MCV (80.0-98.0) fL MCH (27.0-32.0) pg MCHC (31.0-37.0) g/dL RDW Std Deviation (28.0-62.0) fl RDW Coeff of Gretchen (11.0-15.0) % Plt Count (150-400) K/uL MPV (7.40-12.00) fL Neut % (Auto) (48.0-80.0) % Lymph % (Auto) (16.0-40.0) % Gray % (Auto) (0.0-15.0) % Eos % (Auto) (0.0-7.0) % Baso % (Auto) (0.0-1.5) % Neut # (Auto) (1.4-5.7) K/uL Lymph # (Auto) (0.6-2.4) K/uL Gray # (Auto) (0.0-0.8) K/uL Eos # (Auto) (0.0-0.7) K/uL Baso # (Auto) (0.0-0.1) K/uL INR (0.86-1.11) ABG pH 7.323 L 7.266 L (7.35-7.45) ABG pCO2 37 43 (35-45) mmHG ABG pO2 48 L 106 H (75-100) mmHG ABG HCO3 19 L 20 L (22-26) mEq/L ABG Total CO2 18.3 18.9 ABG Base Excess -6.6 L -6.8 L (-2.0-2.0) Sodium (136-146) mmol/L Potassium (3.5-5.1) mmol/L Chloride (98-110) mmol/L Carbon Dioxide (21-31) mmol/L BUN (6.0-23.0) mg/dL Creatinine (0.6-1.5) mg/dL Est Cr Clr Drug Dosing mL/min Estimated GFR (MDRD) ml/min Glucose (60-110) mg/dL POC Glucose 157 H (60-110) mg/dL Calcium (8.8-10.8) mg/dL Total Bilirubin (0.1-1.5) mg/dL AST (5-40) IU/L ALT (8-54) IU/L Alkaline Phosphatase (40-150) Ammonia (14-68) UG/DL Total Protein (6.0-8.0) g/dL Albumin (3.4-4.8) g/dL Globulin (2.0-3.5) g/dL Albumin/Globulin Ratio (1.3-2.8) Fluid Type Fluid Color Fluid Appearance Fluid WBC K/uL Fluid RBC M/uL Fluid Mononuclear Cell % Fl Polymorphonucl Cell % 03/07/17 03/07/17 03/07/17 Range/Units 04:55 04:55 04:55 WBC 3.47 L (4.0-11.0) K/uL RBC 2.80 L (4.50-5.90) M/uL Hgb 9.1 L (13.0-17.0) g/dL Hct 28.0 L (38.0-50.0) % MCV 100.0 H (80.0-98.0) fL MCH 32.5 H (27.0-32.0) pg MCHC 32.5 (31.0-37.0) g/dL RDW Std Deviation 45.7 (28.0-62.0) fl RDW Coeff of Gretchen 13 (11.0-15.0) % Plt Count 53 L (150-400) K/uL MPV 11.20 (7.40-12.00) fL Neut % (Auto) 94.5 H (48.0-80.0) % Lymph % (Auto) 2.0 L (16.0-40.0) % Gray % (Auto) 3.5 (0.0-15.0) % Eos % (Auto) 0.0 (0.0-7.0) % Baso % (Auto) 0.0 (0.0-1.5) % Neut # (Auto) 3.3 (1.4-5.7) K/uL Lymph # (Auto) 0.1 L (0.6-2.4) K/uL Gray # (Auto) 0.1 (0.0-0.8) K/uL Eos # (Auto) 0.0 (0.0-0.7) K/uL Baso # (Auto) 0.0 (0.0-0.1) K/uL INR 1.46 H (0.86-1.11) ABG pH (7.35-7.45) ABG pCO2 (35-45) mmHG ABG pO2 (75-100) mmHG ABG HCO3 (22-26) mEq/L ABG Total CO2 ABG Base Excess (-2.0-2.0) Sodium 138 (136-146) mmol/L Potassium 5.4 H (3.5-5.1) mmol/L Chloride 112 H (98-110) mmol/L Carbon Dioxide 20 L (21-31) mmol/L BUN 64 H (6.0-23.0) mg/dL Creatinine 1.9 H (0.6-1.5) mg/dL Est Cr Clr Drug Dosing 42.79 mL/min Estimated GFR (MDRD) 36.3 ml/min Glucose 156 H (60-110) mg/dL POC Glucose (60-110) mg/dL Calcium 8.3 L (8.8-10.8) mg/dL Total Bilirubin 1.3 (0.1-1.5) mg/dL AST 41 H (5-40) IU/L ALT 52 (8-54) IU/L Alkaline Phosphatase 97 (40-150) Ammonia (14-68) UG/DL Total Protein 5.8 L (6.0-8.0) g/dL Albumin 2.6 L (3.4-4.8) g/dL Globulin 3.2 (2.0-3.5) g/dL Albumin/Globulin Ratio 0.8 L (1.3-2.8) Fluid Type Fluid Color Fluid Appearance Fluid WBC K/uL Fluid RBC M/uL Fluid Mononuclear Cell % Fl Polymorphonucl Cell % 03/07/17 03/07/17 03/07/17 Range/Units 05:05 06:27 09:54 WBC (4.0-11.0) K/uL RBC (4.50-5.90) M/uL Hgb (13.0-17.0) g/dL Hct (38.0-50.0) % MCV (80.0-98.0) fL MCH (27.0-32.0) pg MCHC (31.0-37.0) g/dL RDW Std Deviation (28.0-62.0) fl RDW Coeff of Gretchen (11.0-15.0) % Plt Count (150-400) K/uL MPV (7.40-12.00) fL Neut % (Auto) (48.0-80.0) % Lymph % (Auto) (16.0-40.0) % Gray % (Auto) (0.0-15.0) % Eos % (Auto) (0.0-7.0) % Baso % (Auto) (0.0-1.5) % Neut # (Auto) (1.4-5.7) K/uL Lymph # (Auto) (0.6-2.4) K/uL Gray # (Auto) (0.0-0.8) K/uL Eos # (Auto) (0.0-0.7) K/uL Baso # (Auto) (0.0-0.1) K/uL INR (0.86-1.11) ABG pH 7.256 L 7.266 L (7.35-7.45) ABG pCO2 45 43 (35-45) mmHG ABG pO2 95 57 L (75-100) mmHG ABG HCO3 20 L 20 L (22-26) mEq/L ABG Total CO2 19.3 19.0 ABG Base Excess -6.7 L -6.8 L (-2.0-2.0) Sodium (136-146) mmol/L Potassium (3.5-5.1) mmol/L Chloride (98-110) mmol/L Carbon Dioxide (21-31) mmol/L BUN (6.0-23.0) mg/dL Creatinine (0.6-1.5) mg/dL Est Cr Clr Drug Dosing mL/min Estimated GFR (MDRD) ml/min Glucose (60-110) mg/dL POC Glucose 150 H (60-110) mg/dL Calcium (8.8-10.8) mg/dL Total Bilirubin (0.1-1.5) mg/dL AST (5-40) IU/L ALT (8-54) IU/L Alkaline Phosphatase (40-150) Ammonia (14-68) UG/DL Total Protein (6.0-8.0) g/dL Albumin (3.4-4.8) g/dL Globulin (2.0-3.5) g/dL Albumin/Globulin Ratio (1.3-2.8) Fluid Type Fluid Color Fluid Appearance Fluid WBC K/uL Fluid RBC M/uL Fluid Mononuclear Cell % Fl Polymorphonucl Cell % 03/07/17 03/07/17 Range/Units 09:54 11:19 WBC (4.0-11.0) K/uL RBC (4.50-5.90) M/uL Hgb (13.0-17.0) g/dL Hct (38.0-50.0) % MCV (80.0-98.0) fL MCH (27.0-32.0) pg MCHC (31.0-37.0) g/dL RDW Std Deviation (28.0-62.0) fl RDW Coeff of Gretchen (11.0-15.0) % Plt Count (150-400) K/uL MPV (7.40-12.00) fL Neut % (Auto) (48.0-80.0) % Lymph % (Auto) (16.0-40.0) % Gray % (Auto) (0.0-15.0) % Eos % (Auto) (0.0-7.0) % Baso % (Auto) (0.0-1.5) % Neut # (Auto) (1.4-5.7) K/uL Lymph # (Auto) (0.6-2.4) K/uL Gray # (Auto) (0.0-0.8) K/uL Eos # (Auto) (0.0-0.7) K/uL Baso # (Auto) (0.0-0.1) K/uL INR (0.86-1.11) ABG pH (7.35-7.45) ABG pCO2 (35-45) mmHG ABG pO2 (75-100) mmHG ABG HCO3 (22-26) mEq/L ABG Total CO2 ABG Base Excess (-2.0-2.0) Sodium (136-146) mmol/L Potassium (3.5-5.1) mmol/L Chloride (98-110) mmol/L Carbon Dioxide (21-31) mmol/L BUN (6.0-23.0) mg/dL Creatinine (0.6-1.5) mg/dL Est Cr Clr Drug Dosing mL/min Estimated GFR (MDRD) ml/min Glucose (60-110) mg/dL POC Glucose 169 H (60-110) mg/dL Calcium (8.8-10.8) mg/dL Total Bilirubin (0.1-1.5) mg/dL AST (5-40) IU/L ALT (8-54) IU/L Alkaline Phosphatase (40-150) Ammonia 228 H (14-68) UG/DL Total Protein (6.0-8.0) g/dL Albumin (3.4-4.8) g/dL Globulin (2.0-3.5) g/dL Albumin/Globulin Ratio (1.3-2.8) Fluid Type Fluid Color Fluid Appearance Fluid WBC K/uL Fluid RBC M/uL Fluid Mononuclear Cell % Fl Polymorphonucl Cell % Micheal Results Last 24 Hours: Microbiology 03/06/17 15:24 Gram Stain - Preliminary Ascities Fluid Body Fluid Culture - Preliminary NO GROWTH AFTER 1 DAY Med Orders - Current: Current Medications Lorazepam (Ativan) 0.25 mg IVPUSH Q4H PRN PRN Reason: Anxiety Last Admin: 03/07/17 02:32 Dose: 0.25 mg Morphine Sulfate (Morphine) 2 mg IVPUSH Q1H PRN PRN Reason: Pain Ondansetron HCl (Zofran Odt) 4 mg PO Q4H PRN PRN Reason: nausea, able to take PO Last Admin: 03/06/17 13:15 Dose: 4 mg Scopolamine (Transderm-Scop) 1.5 mg TOP ONETIME ONE Stop: 03/07/17 12:05 Sodium Chloride (Saline Flush) 10 ml FLUSH ASDIRECTED PRN PRN Reason: Keep Vein Open Last Admin: 03/05/17 14:06 Dose: 10 ml Sodium Chloride (Saline Flush) 2.5 ml FLUSH ASDIRECTED PRN PRN Reason: Keep Vein Open Last Admin: 03/05/17 14:06 Dose: 2.5 ml Spironolactone (Aldactone) 100 mg PO DAILY FOR[facility]LY [facility], [facility] Last Admin: 03/07/17 09:01 Dose: Not Given Discontinued Medications Albuterol/Ipratropium (Duoneb 3.0-0.5 Mg/3 Ml) 3 ml NEB ONETIME ONE Stop: 03/05/17 13:07 Last Admin: 03/05/17 13:12 Dose: 3 ml Albuterol/Ipratropium (Duoneb 3.0-0.5 Mg/3 Ml) 3 ml NEB Q4HRRT [facility], [facility]1983 Last Admin: 03/07/17 09:48 Dose: 3 ml Aspirin (Aspirin) 81 mg PO DAILY [facility], [facility] Last Admin: 03/07/17 09:01 Dose: Not Given Fluoxetine HCl (Prozac) 40 mg PO DAILY [facility], [facility] Last Admin: 03/07/17 09:01 Dose: Not Given Furosemide (Lasix) 40 mg IVPUSH NOW ONE Stop: 03/05/17 14:14 Last Admin: 03/05/17 15:33 Dose: 40 mg Pantoprazole Sodium 40 mg/ (Sodium Chloride) 10 mls @ 200 mls/hr IV Q12HR [facility] Last Admin: 03/07/17 09:03 Dose: 200 mls/hr Azithromycin 500 mg/ Sodium (Chloride) 250 mls @ 250 mls/hr IV Q24H [facility] Last Admin: 03/07/17 09:05 Dose: 250 mls/hr Insulin Aspart (Novolog) 0 unit SUBCUT TIDAC PRN; Protocol PRN Reason: Blood Glucose Insulin Aspart (Novolog) 0 unit SUBCUT TIDAC NELSON PRN Reason: Protocol Last Admin: 03/07/17 11:34 Dose: Not Given Lactulose (Chronulac) 10 gm PO BID [facility] Lorazepam (Ativan) 0.25 mg IVPUSH ONETIME ONE Stop: 03/06/17 19:15 Last Admin: 03/06/17 20:43 Dose: Not Given Methylprednisolone Sodium Succinate (Solu-Medrol) 125 mg IVPUSH Q12H [facility] Last Admin: 03/07/17 01:54 Dose: 125 mg Nicotine (Habitrol) 21 mg TRDERM DAILY [facility] Last Admin: 03/07/17 09:06 Dose: 21 mg Oxycodone HCl (Oxycodone) 5 mg PO Q4H PRN PRN Reason: Pain (moderate 4-6) Last Admin: 03/06/17 13:15 Dose: 5 mg Pantoprazole Sodium (Protonix Iv) 40 mg IV Q12HR [facility] Last Admin: 03/05/17 21:20 Dose: 40 mg - Exam Quality Assessment: Supplemental Oxygen General: Severe Distress, Lethargic Lungs: Rales, Rhonchi, Wheezing GI/Abdominal Exam: Abnormal Bowel Sounds - Problem List Review Problem List Initiated/Reviewed/Updated: Yes - My Orders Last 24 Hours: My Active Orders 03/06/17 15:24 CULTURE BODY FLUID + SMEAR [RM] Routine 03/06/17 19:15 LORazepam [Ativan] 0.25 mg IVPUSH Q4H PRN 03/07/17 12:00 Morphine 2 mg IVPUSH Q1H PRN 03/07/17 12:04 Scopolamine [Transderm-Scop] 1.5 mg TOP ONETIME ONE - Plan Plan:: 61-year-old male with a current diagnosis of liver cancer and a significant medical history including COPD, hypertension, type 2 diabetes and hepatitis C that is being admitted with shortness of breath and increasing abdominal distention likely secondary to ascites. #1. Abdominal ascites with distention secondary to liver cancer: #2. Hypoxemic, hypercapnic respiratory failure secondary to acute COPD exacerbation: #3. Thrombocytopenia likely secondary to liver cancer: #4. Abdominal ascites, peripheral edema, orthopnea: #5. Type 2 diabetes: #6. Anxiety #7. Hepatic encephalopathy with elevated ammonia level #8. Multiorgan system failure #9. ARDS We had a family meeting today decision has been made to make the patient DNR/DNI /comfort care. At this present moment-Patient has been made comfort care, DNR/ DNI only intervention is BiPAP, morphine 2 mg every hour as needed, Ativan as needed for agitation, scopolamine for secretion <Royce Licona Last Filed: 03/07/17 12:43> - General Info Admission Dx/Problem (Free Text): See my simple provider note March 07, 2017. I was present with the resident during history and examination. I discussed the case with the resident and agree with the findings and plan as documented in the residents note. - Patient Data Vitals - Most Recent: Last Vital Signs Temp 36.4 C 03/07/17 08:24 Pulse 94 03/05/17 14:45 Resp 21 H 03/07/17 12:00 BP 119/59 L 03/07/17 12:00 Pulse Ox 97 03/07/17 12:00 I&O - Last 24 Hours: Intake & Output 03/06/17 03/07/17 03/07/17 22:59 06:59 14:59 Intake Total 500 50 260 Output Total 300 650 Balance 200 -600 260 Lab Results Last 24 Hours: Laboratory Results - last 24 hr 03/06/17 03/06/17 03/06/17 Range/Units 15:24 16:50 18:29 WBC (4.0-11.0) K/uL RBC (4.50-5.90) M/uL Hgb (13.0-17.0) g/dL Hct (38.0-50.0) % MCV (80.0-98.0) fL MCH (27.0-32.0) pg MCHC (31.0-37.0) g/dL RDW Std Deviation (28.0-62.0) fl RDW Coeff of Gretchen (11.0-15.0) % Plt Count (150-400) K/uL MPV (7.40-12.00) fL Neut % (Auto) (48.0-80.0) % Lymph % (Auto) (16.0-40.0) % Gray % (Auto) (0.0-15.0) % Eos % (Auto) (0.0-7.0) % Baso % (Auto) (0.0-1.5) % Neut # (Auto) (1.4-5.7) K/uL Lymph # (Auto) (0.6-2.4) K/uL Gray # (Auto) (0.0-0.8) K/uL Eos # (Auto) (0.0-0.7) K/uL Baso # (Auto) (0.0-0.1) K/uL INR (0.86-1.11) ABG pH 7.323 L (7.35-7.45) ABG pCO2 37 (35-45) mmHG ABG pO2 48 L (75-100) mmHG ABG HCO3 19 L (22-26) mEq/L ABG Total CO2 18.3 ABG Base Excess -6.6 L (-2.0-2.0) Sodium (136-146) mmol/L Potassium (3.5-5.1) mmol/L Chloride (98-110) mmol/L Carbon Dioxide (21-31) mmol/L BUN (6.0-23.0) mg/dL Creatinine (0.6-1.5) mg/dL Est Cr Clr Drug Dosing mL/min Estimated GFR (MDRD) ml/min Glucose (60-110) mg/dL POC Glucose 157 H (60-110) mg/dL Calcium (8.8-10.8) mg/dL Total Bilirubin (0.1-1.5) mg/dL AST (5-40) IU/L ALT (8-54) IU/L Alkaline Phosphatase (40-150) Ammonia (14-68) UG/DL Total Protein (6.0-8.0) g/dL Albumin (3.4-4.8) g/dL Globulin (2.0-3.5) g/dL Albumin/Globulin Ratio (1.3-2.8) Fluid Type PER Fluid Color YELLOW Fluid Appearance CLEAR Fluid WBC 0.02 K/uL Fluid RBC 0.00 M/uL Fluid Mononuclear Cell 62.5 % Fl Polymorphonucl Cell 37.5 % 03/07/17 03/07/17 03/07/17 Range/Units 03:35 04:55 04:55 WBC 3.47 L (4.0-11.0) K/uL RBC 2.80 L (4.50-5.90) M/uL Hgb 9.1 L (13.0-17.0) g/dL Hct 28.0 L (38.0-50.0) % MCV 100.0 H (80.0-98.0) fL MCH 32.5 H (27.0-32.0) pg MCHC 32.5 (31.0-37.0) g/dL RDW Std Deviation 45.7 (28.0-62.0) fl RDW Coeff of Gretchen 13 (11.0-15.0) % Plt Count 53 L (150-400) K/uL MPV 11.20 (7.40-12.00) fL Neut % (Auto) 94.5 H (48.0-80.0) % Lymph % (Auto) 2.0 L (16.0-40.0) % Gray % (Auto) 3.5 (0.0-15.0) % Eos % (Auto) 0.0 (0.0-7.0) % Baso % (Auto) 0.0 (0.0-1.5) % Neut # (Auto) 3.3 (1.4-5.7) K/uL Lymph # (Auto) 0.1 L (0.6-2.4) K/uL Gray # (Auto) 0.1 (0.0-0.8) K/uL Eos # (Auto) 0.0 (0.0-0.7) K/uL Baso # (Auto) 0.0 (0.0-0.1) K/uL INR 1.46 H (0.86-1.11) ABG pH 7.266 L (7.35-7.45) ABG pCO2 43 (35-45) mmHG ABG pO2 106 H (75-100) mmHG ABG HCO3 20 L (22-26) mEq/L ABG Total CO2 18.9 ABG Base Excess -6.8 L (-2.0-2.0) Sodium (136-146) mmol/L Potassium (3.5-5.1) mmol/L Chloride (98-110) mmol/L Carbon Dioxide (21-31) mmol/L BUN (6.0-23.0) mg/dL Creatinine (0.6-1.5) mg/dL Est Cr Clr Drug Dosing mL/min Estimated GFR (MDRD) ml/min Glucose (60-110) mg/dL POC Glucose (60-110) mg/dL Calcium (8.8-10.8) mg/dL Total Bilirubin (0.1-1.5) mg/dL AST (5-40) IU/L ALT (8-54) IU/L Alkaline Phosphatase (40-150) Ammonia (14-68) UG/DL Total Protein (6.0-8.0) g/dL Albumin (3.4-4.8) g/dL Globulin (2.0-3.5) g/dL Albumin/Globulin Ratio (1.3-2.8) Fluid Type Fluid Color Fluid Appearance Fluid WBC K/uL Fluid RBC M/uL Fluid Mononuclear Cell % Fl Polymorphonucl Cell % 03/07/17 03/07/17 03/07/17 Range/Units 04:55 05:05 06:27 WBC (4.0-11.0) K/uL RBC (4.50-5.90) M/uL Hgb (13.0-17.0) g/dL Hct (38.0-50.0) % MCV (80.0-98.0) fL MCH (27.0-32.0) pg MCHC (31.0-37.0) g/dL RDW Std Deviation (28.0-62.0) fl RDW Coeff of Gretchen (11.0-15.0) % Plt Count (150-400) K/uL MPV (7.40-12.00) fL Neut % (Auto) (48.0-80.0) % Lymph % (Auto) (16.0-40.0) % Gray % (Auto) (0.0-15.0) % Eos % (Auto) (0.0-7.0) % Baso % (Auto) (0.0-1.5) % Neut # (Auto) (1.4-5.7) K/uL Lymph # (Auto) (0.6-2.4) K/uL Gray # (Auto) (0.0-0.8) K/uL Eos # (Auto) (0.0-0.7) K/uL Baso # (Auto) (0.0-0.1) K/uL INR (0.86-1.11) ABG pH 7.256 L (7.35-7.45) ABG pCO2 45 (35-45) mmHG ABG pO2 95 (75-100) mmHG ABG HCO3 20 L (22-26) mEq/L ABG Total CO2 19.3 ABG Base Excess -6.7 L (-2.0-2.0) Sodium 138 (136-146) mmol/L Potassium 5.4 H (3.5-5.1) mmol/L Chloride 112 H (98-110) mmol/L Carbon Dioxide 20 L (21-31) mmol/L BUN 64 H (6.0-23.0) mg/dL Creatinine 1.9 H (0.6-1.5) mg/dL Est Cr Clr Drug Dosing 42.79 mL/min Estimated GFR (MDRD) 36.3 ml/min Glucose 156 H (60-110) mg/dL POC Glucose 150 H (60-110) mg/dL Calcium 8.3 L (8.8-10.8) mg/dL Total Bilirubin 1.3 (0.1-1.5) mg/dL AST 41 H (5-40) IU/L ALT 52 (8-54) IU/L Alkaline Phosphatase 97 (40-150) Ammonia (14-68) UG/DL Total Protein 5.8 L (6.0-8.0) g/dL Albumin 2.6 L (3.4-4.8) g/dL Globulin 3.2 (2.0-3.5) g/dL Albumin/Globulin Ratio 0.8 L (1.3-2.8) Fluid Type Fluid Color Fluid Appearance Fluid WBC K/uL Fluid RBC M/uL Fluid Mononuclear Cell % Fl Polymorphonucl Cell % 03/07/17 03/07/17 03/07/17 Range/Units 09:54 09:54 11:19 WBC (4.0-11.0) K/uL RBC (4.50-5.90) M/uL Hgb (13.0-17.0) g/dL Hct (38.0-50.0) % MCV (80.0-98.0) fL MCH (27.0-32.0) pg MCHC (31.0-37.0) g/dL RDW Std Deviation (28.0-62.0) fl RDW Coeff of Gretchen (11.0-15.0) % Plt Count (150-400) K/uL MPV (7.40-12.00) fL Neut % (Auto) (48.0-80.0) % Lymph % (Auto) (16.0-40.0) % Gray % (Auto) (0.0-15.0) % Eos % (Auto) (0.0-7.0) % Baso % (Auto) (0.0-1.5) % Neut # (Auto) (1.4-5.7) K/uL Lymph # (Auto) (0.6-2.4) K/uL Gray # (Auto) (0.0-0.8) K/uL Eos # (Auto) (0.0-0.7) K/uL Baso # (Auto) (0.0-0.1) K/uL INR (0.86-1.11) ABG pH 7.266 L (7.35-7.45) ABG pCO2 43 (35-45) mmHG ABG pO2 57 L (75-100) mmHG ABG HCO3 20 L (22-26) mEq/L ABG Total CO2 19.0 ABG Base Excess -6.8 L (-2.0-2.0) Sodium (136-146) mmol/L Potassium (3.5-5.1) mmol/L Chloride (98-110) mmol/L Carbon Dioxide (21-31) mmol/L BUN (6.0-23.0) mg/dL Creatinine (0.6-1.5) mg/dL Est Cr Clr Drug Dosing mL/min Estimated GFR (MDRD) ml/min Glucose (60-110) mg/dL POC Glucose 169 H (60-110) mg/dL Calcium (8.8-10.8) mg/dL Total Bilirubin (0.1-1.5) mg/dL AST (5-40) IU/L ALT (8-54) IU/L Alkaline Phosphatase (40-150) Ammonia 228 H (14-68) UG/DL Total Protein (6.0-8.0) g/dL Albumin (3.4-4.8) g/dL Globulin (2.0-3.5) g/dL Albumin/Globulin Ratio (1.3-2.8) Fluid Type Fluid Color Fluid Appearance Fluid WBC K/uL Fluid RBC M/uL Fluid Mononuclear Cell % Fl Polymorphonucl Cell % Micheal Results Last 24 Hours: Microbiology 03/06/17 15:24 Gram Stain - Preliminary Ascities Fluid Body Fluid Culture - Preliminary NO GROWTH AFTER 1 DAY Med Orders - Current: Current Medications Lorazepam (Ativan) 0.25 mg IVPUSH Q4H PRN PRN Reason: Anxiety Last Admin: 03/07/17 02:32 Dose: 0.25 mg Morphine Sulfate (Morphine) 2 mg IVPUSH Q1H PRN PRN Reason: Pain Ondansetron HCl (Zofran Odt) 4 mg PO Q4H PRN PRN Reason: nausea, able to take PO Last Admin: 03/06/17 13:15 Dose: 4 mg Sodium Chloride (Saline Flush) 10 ml FLUSH ASDIRECTED PRN PRN Reason: Keep Vein Open Last Admin: 03/05/17 14:06 Dose: 10 ml Sodium Chloride (Saline Flush) 2.5 ml FLUSH ASDIRECTED PRN PRN Reason: Keep Vein Open Last Admin: 03/05/17 14:06 Dose: 2.5 ml Spironolactone (Aldactone) 100 mg PO DAILY [facility], [facility] Last Admin: 03/07/17 09:01 Dose: Not Given Discontinued Medications Albuterol/Ipratropium (Duoneb 3.0-0.5 Mg/3 Ml) 3 ml NEB ONETIME ONE Stop: 03/05/17 13:07 Last Admin: 03/05/17 13:12 Dose: 3 ml Albuterol/Ipratropium (Duoneb 3.0-0.5 Mg/3 Ml) 3 ml NEB Q4HRRT [facility], [facility]1983 Last Admin: 03/07/17 09:48 Dose: 3 ml Aspirin (Aspirin) 81 mg PO DAILY [facility] Last Admin: 03/07/17 09:01 Dose: Not Given Fluoxetine HCl (Prozac) 40 mg PO DAILY [facility] Last Admin: 03/07/17 09:01 Dose: Not Given Furosemide (Lasix) 40 mg IVPUSH NOW ONE Stop: 03/05/17 14:14 Last Admin: 03/05/17 15:33 Dose: 40 mg Pantoprazole Sodium 40 mg/ (Sodium Chloride) 10 mls @ 200 mls/hr IV Q12HR [facility] Last Admin: 03/07/17 09:03 Dose: 200 mls/hr Azithromycin 500 mg/ Sodium (Chloride) 250 mls @ 250 mls/hr IV Q24H [facility] Last Admin: 03/07/17 09:05 Dose: 250 mls/hr Insulin Aspart (Novolog) 0 unit SUBCUT TIDAC PRN; Protocol PRN Reason: Blood Glucose Insulin Aspart (Novolog) 0 unit SUBCUT TIDAC NELSON PRN Reason: Protocol Last Admin: 03/07/17 11:34 Dose: Not Given Lactulose (Chronulac) 10 gm PO BID [facility] Lorazepam (Ativan) 0.25 mg IVPUSH ONETIME ONE Stop: 03/06/17 19:15 Last Admin: 03/06/17 20:43 Dose: Not Given Methylprednisolone Sodium Succinate (Solu-Medrol) 125 mg IVPUSH Q12H [facility] Last Admin: 03/07/17 01:54 Dose: 125 mg Nicotine (Habitrol) 21 mg TRDERM DAILY [facility] Last Admin: 03/07/17 09:06 Dose: 21 mg Oxycodone HCl (Oxycodone) 5 mg PO Q4H PRN PRN Reason: Pain (moderate 4-6) Last Admin: 03/06/17 13:15 Dose: 5 mg Pantoprazole Sodium (Protonix Iv) 40 mg IV Q12HR [facility] Last Admin: 03/05/17 21:20 Dose: 40 mg Scopolamine (Transderm-Scop) 1.5 mg TOP ONETIME ONE Stop: 03/07/17 12:05 Last Admin: 03/07/17 12:34 Dose: 1.5 mg
--- NOTE | 2017-03-07 12:29 | PCM.SN ---
- Free Text/Narrative Note: March 07, 2017: The patient is a 61-year-old gentleman who is here primarily for respiratory distress and has a history of cirrhosis, hepatitis C with hepatic tumors there were chemoembolized last week at his specialty clinic in [place]. The patient was hypoxic after the procedure. The patient had delayed by 3 days to follow-up in the emergency room locally. The patient had been admitted with acute respiratory failure with hypoxia and subsequently he was placed on BiPAP to help to improve his PaO2 and his pulse oximetry. On initial admission the patient's ammonia level was normal at 45 mcg/dL. The patient's latest blood gas on BiPAP showed a pH of 7.266, the patient's PCO2 was at 43, PaO2 at 57 bicarbonate was at 20. The patient's total bicarbonate was 19. This admission indicated a mixed acid-base disorder and a repeat ammonia level showed markedly elevation at 228 mcg/dL. The patient currently has a child davis classification of 10 along with stage IV encephalopathy. This is indicative of a grim prognosis in light of the patient also having a repeat chest x-ray consistent with ARDS. I spoke with the patient's family early this morning with regards to the prognosis. The patient's condition is worsened. The patient's family were given a choice between continued treatment which would result in intubation and subsequent transfer to tertiary care center or comfort care measures. The patient's family has elected to continue the patient on a BiPAP suspend all other non-comfort measures for now. All testing has been discontinued, no further antibiotics, no further medications for now and the BiPAP will be discontinued when the patient's family is ready. Family members are coming in from outside. I suspect likely that the patient will pass away rather quickly once oxygen is discontinued.
[2017-03-07] MEDS ORDERED: Morphine Oral Concentrate 20 MG/ML 30 ML Bottle SL PRN (14:34)
[2017-03-07] MEDS ORDERED: LORazepam Conc Solution 2 MG/ML 30 ML Bottle PO PRN (14:36)
[2017-03-07 14:56] VITALS: BP 0/0
--- NOTE | 2017-03-08 09:54 | PCM.DCSUM1 ---
<Claudio Ambrosio Z - Last Filed: 03/12/17 18:40> Discharge Summary - Hospital Course Free Text/Narrative:: Discharge Summary Date of admission: 03/05/2017 Date of discharge: 03/08/2017 Admitting diagnosis: #1. Acute hypoxemic, hypercapnic respiratory failure secondary to acute COPD exacerbation #2. Thrombocytopenia #3. Ascites secondary to malignancy #4. Liver cancer #5. Abdominal pain secondary to liver cancer #6. Multi-system organ dysfunction Discharge diagnoses: #1. Patient on 03/08/2017 time of 1443 secondary to multi-organ system failure Consultations: Radiology Procedures: Paracentesis Hospitalization course: Patient was admitted on 03/05/2017 secondary to severe hypoxemia in the setting of acute COPD exacerbation. Patient initially was on nasal cannula for oxygen support along with dual nebs and prednisone however secondary to further worsening and respiratory compromise patient was then put on BiPAP with settings continually arising. Patient had a paracentesis done which took out just over 3 L of fluids that the slightly alleviate the patient' s respiratory status however as the day progressed patient's respiratory status became further compromise. The patient soon also became encephalopathic secondary to ammonia buildup. At this point in time patient was still full code however multiple discussions were had with the family explaining to the family the patient's dire circumstances and the likely harm that would come from resuscitation. After thorough discussion the family determined that the patient should be DNR/DNI and made comfort care. On 03/08/2017, the decision was made to put the patient on comfort care, patient was given IV morphine to ensure pain management, scopolamine, and Ativan were on board to ensure that the patient was made as comfortable as possible. A calculating machine operator was also provided to the family. BiPAP was then removed all interventions were stopped and the patient comfortably with his entire family surrounding him. Disposition on discharge: home Condition on discharge: 03/08/2017 at 1443 - Discharge Data Discharge Date: 03/08/17 Discharge Disposition: 20 Condition: - Discharge Plan Home Medications: Home Meds Aspirin 81 mg PO DAILY 06/21/15 [History] Spironolactone 100 mg PO DAILY 06/21/15 [History] Acetaminophen/Diphenhydramine [Acetaminophen-Diphenhyd 500-25] 1 each PO BEDTIME PRN 03/05/17 [History] Acetaminophen/HYDROcodone [Philip 325-5 MG] 2 tab PO Q6H PRN 03/05/17 [History] Albuterol Sulfate [Proair Hfa] 1 puff IH Q6H PRN 03/05/17 [History] Albuterol/Ipratropium [DuoNeb 3.0-0.5 MG/3 ML] 3 ml NEB Q6HRRT 03/05/17 [History ] FLUoxetine HCl [Fluoxetine HCl] 40 mg PO DAILY 03/05/17 [History] Ondansetron [Zofran ODT] 4 mg PO Q8H PRN 03/05/17 [History] Forms: ED Department Discharge Referrals: Bhargav Tariq MD [Primary Care Provider] - - Patient Data Vitals - Most Recent: Last Vital Signs Temp 36.4 C 03/07/17 08:24 Pulse 94 03/05/17 14:45 Resp 0 L 03/07/17 14:43 BP 0/0 L 03/07/17 14:43 Pulse Ox 0 L 03/07/17 14:43 Weight - Most Recent: 94.3 kg Lab Results - Last 24 hrs: Laboratory Results - last 24 hr 03/07/17 03/07/17 03/07/17 Range/Units 09:54 09:54 11:19 ABG pH 7.266 L (7.35-7.45) ABG pCO2 43 (35-45) mmHG ABG pO2 57 L (75-100) mmHG ABG HCO3 20 L (22-26) mEq/L ABG Total CO2 19.0 ABG Base Excess -6.8 L (-2.0-2.0) POC Glucose 169 H (60-110) mg/dL Ammonia 228 H (14-68) UG/DL GARRY Results - Last 24 hrs: Microbiology 03/06/17 15:24 Gram Stain - Preliminary Ascities Fluid Body Fluid Culture - Preliminary NO GROWTH AFTER 2 DAYS Med Orders - Current: Current Medications Discontinued Medications Albuterol/Ipratropium (Duoneb 3.0-0.5 Mg/3 Ml) 3 ml NEB ONETIME ONE Stop: 03/05/17 13:07 Last Admin: 03/05/17 13:12 Dose: 3 ml Albuterol/Ipratropium (Duoneb 3.0-0.5 Mg/3 Ml) 3 ml NEB Q4HRRT [facility] Last Admin: 03/07/17 09:48 Dose: 3 ml Aspirin (Aspirin) 81 mg PO DAILY [facility] Last Admin: 03/07/17 09:01 Dose: Not Given Fluoxetine HCl (Prozac) 40 mg PO DAILY [facility] Last Admin: 03/07/17 09:01 Dose: Not Given Furosemide (Lasix) 40 mg IVPUSH NOW ONE Stop: 03/05/17 14:14 Last Admin: 03/05/17 15:33 Dose: 40 mg Pantoprazole Sodium 40 mg/ (Sodium Chloride) 10 mls @ 200 mls/hr IV Q12HR [facility] Last Admin: 03/07/17 09:03 Dose: 200 mls/hr Azithromycin 500 mg/ Sodium (Chloride) 250 mls @ 250 mls/hr IV Q24H [facility] Last Admin: 03/07/17 09:05 Dose: 250 mls/hr Insulin Aspart (Novolog) 0 unit SUBCUT TIDAC PRN; Protocol PRN Reason: Blood Glucose Insulin Aspart (Novolog) 0 unit SUBCUT TIDAC [facility] PRN Reason: Protocol Last Admin: 03/07/17 11:34 Dose: Not Given Lactulose (Chronulac) 10 gm PO BID [facility] Last Admin: 03/07/17 15:10 Dose: Not Given Lorazepam (Ativan) 0.25 mg IVPUSH ONETIME ONE Stop: 03/06/17 19:15 Last Admin: 03/06/17 20:43 Dose: Not Given Lorazepam (Ativan) 0.25 mg IVPUSH Q4H PRN PRN Reason: Anxiety Last Admin: 03/07/17 14:15 Dose: 0.25 mg Lorazepam (Ativan) 2 mg PO Q4H PRN PRN Reason: Agitation Methylprednisolone Sodium Succinate (Solu-Medrol) 125 mg IVPUSH Q12H [facility] Last Admin: 03/07/17 01:54 Dose: 125 mg Morphine Sulfate (Morphine) 2 mg IVPUSH Q1H PRN PRN Reason: Pain Last Admin: 03/07/17 13:45 Dose: 2 mg Morphine Sulfate (Morphine 20 Mg/Ml Soln) 5 mg SL Q30M PRN PRN Reason: Shortness of Breath Nicotine (Habitrol) 21 mg TRDERM DAILY [facility] Last Admin: 03/07/17 09:06 Dose: 21 mg Ondansetron HCl (Zofran Odt) 4 mg PO Q4H PRN PRN Reason: nausea, able to take PO Last Admin: 03/06/17 13:15 Dose: 4 mg Oxycodone HCl (Oxycodone) 5 mg PO Q4H PRN PRN Reason: Pain (moderate 4-6) Last Admin: 03/06/17 13:15 Dose: 5 mg Pantoprazole Sodium (Protonix Iv) 40 mg IV Q12HR [facility] Last Admin: 03/05/17 21:20 Dose: 40 mg Scopolamine (Transderm-Scop) 1.5 mg TOP ONETIME ONE Stop: 03/07/17 12:05 Last Admin: 03/07/17 12:34 Dose: 1.5 mg Sodium Chloride (Saline Flush) 10 ml FLUSH ASDIRECTED PRN PRN Reason: Keep Vein Open Last Admin: 03/05/17 14:06 Dose: 10 ml Sodium Chloride (Saline Flush) 2.5 ml FLUSH ASDIRECTED PRN PRN Reason: Keep Vein Open Last Admin: 03/05/17 14:06 Dose: 2.5 ml Spironolactone (Aldactone) 100 mg PO DAILY [facility] Last Admin: 03/07/17 09:01 Dose: Not Given <Royce Licona - Last Filed: 03/15/17 08:19> Discharge Summary - Hospital Course HPI Initial Comments: Shortly before the patient palliative measures were instituted. The patient had the oxygen discontinued and his saturations quickly dropped and he quietly with family members present. I was present with the resident during history and examination. I discussed the case with the resident and agree with the findings and plan as documented in the residents note. - Patient Data Vitals - Most Recent: Last Vital Signs Temp 36.4 C 03/07/17 08:24 Pulse 94 03/05/17 14:45 Resp 0 L 03/07/17 14:43 BP 0/0 L 03/07/17 14:43 Pulse Ox 0 L 03/07/17 14:43 Med Orders - Current: Current Medications Discontinued Medications Albuterol/Ipratropium (Duoneb 3.0-0.5 Mg/3 Ml) 3 ml NEB ONETIME ONE Stop: 03/05/17 13:07 Last Admin: 03/05/17 13:12 Dose: 3 ml Albuterol/Ipratropium (Duoneb 3.0-0.5 Mg/3 Ml) 3 ml NEB Q4HRRT [facility] Last Admin: 03/07/17 09:48 Dose: 3 ml Aspirin (Aspirin) 81 mg PO DAILY [facility] Last Admin: 03/07/17 09:01 Dose: Not Given Fluoxetine HCl (Prozac) 40 mg PO DAILY [facility] Last Admin: 03/07/17 09:01 Dose: Not Given Furosemide (Lasix) 40 mg IVPUSH NOW ONE Stop: 03/05/17 14:14 Last Admin: 03/05/17 15:33 Dose: 40 mg Pantoprazole Sodium 40 mg/ (Sodium Chloride) 10 mls @ 200 mls/hr IV Q12HR [facility] Last Admin: 03/07/17 09:03 Dose: 200 mls/hr Azithromycin 500 mg/ Sodium (Chloride) 250 mls @ 250 mls/hr IV Q24H [facility] Last Admin: 03/07/17 09:05 Dose: 250 mls/hr Insulin Aspart (Novolog) 0 unit SUBCUT TIDAC PRN; Protocol PRN Reason: Blood Glucose Insulin Aspart (Novolog) 0 unit SUBCUT TIDAC [facility] PRN Reason: Protocol Last Admin: 03/07/17 11:34 Dose: Not Given Lactulose (Chronulac) 10 gm PO BID [facility] Last Admin: 03/07/17 15:10 Dose: Not Given Lorazepam (Ativan) 0.25 mg IVPUSH ONETIME ONE Stop: 03/06/17 19:15 Last Admin: 03/06/17 20:43 Dose: Not Given Lorazepam (Ativan) 0.25 mg IVPUSH Q4H PRN PRN Reason: Anxiety Last Admin: 03/07/17 14:15 Dose: 0.25 mg Lorazepam (Ativan) 2 mg PO Q4H PRN PRN Reason: Agitation Methylprednisolone Sodium Succinate (Solu-Medrol) 125 mg IVPUSH Q12H [facility] Last Admin: 03/07/17 01:54 Dose: 125 mg Morphine Sulfate (Morphine) 2 mg IVPUSH Q1H PRN PRN Reason: Pain Last Admin: 03/07/17 13:45 Dose: 2 mg Morphine Sulfate (Morphine 20 Mg/Ml Soln) 5 mg SL Q30M PRN PRN Reason: Shortness of Breath Nicotine (Habitrol) 21 mg TRDERM DAILY [facility] Last Admin: 03/07/17 09:06 Dose: 21 mg Ondansetron HCl (Zofran Odt) 4 mg PO Q4H PRN PRN Reason: nausea, able to take PO Last Admin: 03/06/17 13:15 Dose: 4 mg Oxycodone HCl (Oxycodone) 5 mg PO Q4H PRN PRN Reason: Pain (moderate 4-6) Last Admin: 03/06/17 13:15 Dose: 5 mg Pantoprazole Sodium (Protonix Iv) 40 mg IV Q12HR [facility] Last Admin: 03/05/17 21:20 Dose: 40 mg Scopolamine (Transderm-Scop) 1.5 mg TOP ONETIME ONE Stop: 03/07/17 12:05 Last Admin: 03/07/17 12:34 Dose: 1.5 mg Sodium Chloride (Saline Flush) 10 ml FLUSH ASDIRECTED PRN PRN Reason: Keep Vein Open Last Admin: 03/05/17 14:06 Dose: 10 ml Sodium Chloride (Saline Flush) 2.5 ml FLUSH ASDIRECTED PRN PRN Reason: Keep Vein Open Last Admin: 03/05/17 14:06 Dose: 2.5 ml Spironolactone (Aldactone) 100 mg PO DAILY [facility] Last Admin: 03/07/17 09:01 Dose: Not Given *Q Meaningful Use (DIS) - VTE *Q VTE Criteria *Q: - Stroke *Q Stroke Criteria *Q: - AMI *Q AMI Criteria *Q:
--- NOTE | 2017-03-08 17:59 | ECHO ---
The echocardiogram report can be seen in this patient's EMR (Electronic Medical Records) in the Reports section. LONG
== END 2017-03-07 15:40 | disposition expired | DRG 133 ==
LOC: MW.ED 11:50 → MW.ICU 14:13
PROVIDERS: ADMIT Internal Medicine; ATTEND Internal Medicine
PROC: 0W9G3ZZ Drainage of Peritoneal Cavity, Percutaneous Approach (ICD-10-PCS; principal; 2017-03-06)
PROC: 30233R1 Transfusion of Nonautologous Platelets into Peripheral Vein, Percutaneous Approach (ICD-10-PCS; 2017-03-06)
DX: J96.91 Respiratory failure, unspecified with hypoxia (principal); J96.92 Respiratory failure, unspecified with hypercapnia; J44.1 Chronic obstructive pulmonary disease with (acute) exacerbation; D69.6 Thrombocytopenia, unspecified; R18.0 Malignant ascites; C22.8 Malignant neoplasm of liver, primary, unspecified as to type; R10.9 Unspecified abdominal pain; E11.9 Type 2 diabetes mellitus without complications; R45.1 Restlessness and agitation; K74.60 Unspecified cirrhosis of liver; B19.20 Unspecified viral hepatitis C without hepatic coma; K72.90 Hepatic failure, unspecified without coma; R60.9 Edema, unspecified; Z51.5 Encounter for palliative care; Z66 Do not resuscitate; Z79.82 Long term (current) use of aspirin; Z79.899 Other long term (current) drug therapy; Z87.891 Personal history of nicotine dependence; I10 Essential (primary) hypertension; Z86.73 Personal history of transient ischemic attack (TIA), and cerebral infarction without residual deficits
CPT/HCPCS: 36415; 36430; 36600; 49083; 51703; 71010; 71010-26; 80048; 80053; 82140; 82803; 82962; 84484; 85025; 85610; 85730; 86850; 86900; 86901; 87070; 87205; 89050; 93005; 93306; 94640; 94660; 94664; 99284; 99285-25; A9270-GY; C1729; C9113; J0456; J1815-GY; J1940; J2060; J2270; J2930; J7050; P9034